=== PATIENT | female | born 1965 | race Hispanic/Latino ===

== ENCOUNTER → 2018-11-19 | Day surgery (SDC) | payer MEDICARE, MEDICAID ==
[~2018-11-19] MED LIST: Epoetin 40,000 UNITS/ML VIAL SC SCH
[2018-11-19 17:30] VITALS: BP 191/91; TEMP 97.9
== END ==
LOC: ONC/OP 14:42
PROVIDERS: ATTEND Internal Medicine Hematology & Oncology
DX: I12.9 Hypertensive chronic kidney disease with stage 1 through stage 4 chronic kidney disease, or unspecified chronic kidney disease (principal); D63.8 Anemia in other chronic diseases classified elsewhere; N18.9 Chronic kidney disease, unspecified
CPT/HCPCS: 36415; 80053; 82728; 83540; 83550; 96372; J0885

== ENCOUNTER 2018-12-02 09:09 | Inpatient (IN) | payer MEDICARE, MEDICAID ==
[2018-12-02 10:24] LABS: #Basophils 0.1 thou/uL (0.0-0.2); #Eosinphils 0.5 thou/uL (0.0-0.7); #Lymphocytes 1.8 thou/uL (1.20-3.40); #Monocytes 0.4 thou/uL (0.11-0.59); #Neutrophils 4.5 thou/uL (1.40-6.50); %Basophils 0.9 % (0.0-1.0); %Eosinophils 6.3 % (0.0-10.0); %Lymphocytes 25.2 % (21.0-51.0); %Monocytes 5.2 % (0.0-10.0); %Neutrophils 62.5 % (42.0-75.0); Hemoglobin 9.5 g/dL (12.0-16.0); Mean Corpuscular HGB CONC 36.4 g/dL (32.0-36.0); Mean Corpuscular Hemoglobin 30.1 pg (27.0-31.0); Mean Corpuscular Volume 82.6 fL (78.0-98.0); Mean Platelet Volume 7.1 fL (7.4-10.4); Platelet Count 271 thou/uL (130-400); Red Blood Cell (RBC) Count 3.16 mill/uL (4.20-5.40); White Blood Cell (WBC) Count 7.3 thou/uL (4.8-10.8)
[2018-12-02 10:39] LABS: Bilirubin Negative (Negative); Blood, Urine Trace (Negative); Clarity CLEAR (Clear); Glucose, Urine (Dipstick) 500 mg/dL (Negative); Leukocyte Negative (Negative); Nitrite Negative (Negative); Protein, Urine (Dipstick) 300 mg/dL (Neg-Trace); Specific Gravity, Urine 1.014 (1.002-1.036); Urobilinogen 0.2 mg/dL (0.2-1.0); pH, Urine 5.5 (5.0-9.0)
[2018-12-02 10:42] LABS: Bacteria/HPF None Seen HPF (None Seen); Hyaline Casts/LPF 7-10 HYALINE CAST LPF (0-3 Hyaline); Pathc Cast-AUWi Flag 1.45 (0-2.49); Squamous Epithelial 0-3 HPF (0-3)
[2018-12-02 10:44] LABS: ALT (SGPT) 10 U/L (8-55); AST (SGOT) 14 U/L (5-34); Albumin 3.3 g/dL (3.5-5.0); Alkaline Phosphatase 193 U/L (40-150); Anion Gap 13 mmol/L (10-20); BUN (Urea Nitrogen) 73 mg/dL (9.8-20.1); Bilirubin, Total 0.3 mg/dL (0.2-1.2); Calc. Creatinine Clearance 0 mL/min (70-130); Carbon Dioxide 19 mmol/L (22-29); Chloride 107 mmol/L (98-107); Estimated GFR-MDRD 10; Globulin 4.8 g/dL (2.4-3.5); Glucose 346 mg/dL (70-105); Protein, Total 8.1 g/dL (6.0-8.3); Sodium 134 mmol/L (136-145)
[2018-12-02] MEDS ORDERED: CEFAZOLIN/Water 2 GM/20 ML SYRINGE SLOW IVP SCH (11:45)
[2018-12-02 12:08] LABS: HBSAB Concentration 2.17 mIU/mL; Hep B Core Total Ab Non-Reactive (NonReactive); Hep B Core Total Index 0.06 S/CO (0-0.79); Hep B Surf AB Non-Reactive (NonReactive); Hep B Surf Ag Non-Reactive S/CO (NonReactive); Hep C IgG Ab Non-Reactive (NonReactive); Hep C Index 0.13 S/CO (0-0.79)
[2018-12-02] MEDS ORDERED: CEFAZOLIN 2 GM/50 ML-DEXTROSE 2 GM in Premix Bag 1 BAG IVPB SCH (12:30)
--- NOTE | 2018-12-02 13:34 | HP ---
PRIMARY CARE PHYSICIAN: Dr. East. PRIMARY LANDSCAPE PAINTER: Dr. Hunter. CHIEF COMPLAINT: Abnormal labs. HISTORY OF PRESENT ILLNESS: The patient is a 53-year-old female with chronic kidney disease, hypertension, and diabetes mellitus type 2, was sent from Dr. Hunter's office for abnormal labs. The patient was evaluated by Dr. Hunter yesterday and was found to have significant renal insufficiency. She was sent to the emergency room for initiation of dialysis. She had some nausea, however, denies any vomiting. She also had some generalized abdominal cramping, mainly in the upper quadrants. She denies any focal neurologic deficit, however, had some generalized headache. She denies significant shortness of breath, leg swelling, orthopnea, paroxysmal nocturnal dyspnea, or pleuritic chest pain. PAST MEDICAL HISTORY: 1. Worsening CKD. 2. Diabetes mellitus type 2, on insulin. 3. Diabetic neuropathy. 4. Hypertension. PAST SURGICAL HISTORY: 1. Bilateral cataract surgery. 2. Intervention for vitreous hemorrhage. 3. Cholecystectomy. 4. Tubal ligation. ALLERGIES: THE PATIENT DENIES ANY DRUG ALLERGIES. CURRENT HOME MEDICATIONS: 1. Novolin 70/30 of 40 units twice a day. 2. Lasix 40 mg b.i.d. 3. [id number] iron supplements daily. 4. Sodium bicarbonate 3 times a day. 5. Gabapentin 100 mg t.i.d. SOCIAL HISTORY: The patient currently lives at home with her family. She denies any smoking, alcohol, or drug use. FAMILY HISTORY: Positive for diabetes. REVIEW OF SYSTEMS: All other review of systems was reviewed and found negative. PHYSICAL EXAMINATION: VITAL SIGNS: Temperature 98.5, respirations 18, pulse of 84, blood pressure of 144/85, with O2 saturation 100% on room air. GENERAL: A 53-year-old female, in no significant distress. HEENT: Head is atraumatic, normocephalic. Sclerae are anicteric. Dry mucous membranes. No oral lesion. NECK: Supple. No JVD. No carotid bruit. LUNGS: Showed diminished air entry at bilateral bases. No significant rhonchi or rales noted. Lungs were symmetrical. HEART: S1 and S2 present. Regular rate and rhythm. No murmurs, rubs, or gallops appreciated. ABDOMEN: Soft, nontender. Bowel sounds present. EXTREMITIES: There is 1+ edema in bilateral lower extremities up to the knees. No calf tenderness noted. NEUROLOGIC: Grossly nonfocal. Moves all 4 extremities. PSYCHIATRIC: Alert, awake, and oriented x3. SKIN: Warm and dry. LYMPH NODE: No palpable lymph nodes in the neck. PERIPHERAL VASCULAR: Radial pulses palpable bilaterally. MUSCULOSKELETAL: No joint swelling or tenderness. LABORATORY FINDINGS: WBC 7.3 with hemoglobin 9.5, hematocrit 26.1, platelets 271. Recent BUN 104, creatinine 5.64. Bicarbonate today was 19, sodium of 134, blood sugar 346. Urinalysis showed 11 to 20 wbc's with proteinuria. No bacteria were seen. Hepatitis profile was negative. DIAGNOSTIC DATA: Chest x-ray, by my review, was negative for infiltrate. IMPRESSION: 1. Acute kidney injury on chronic kidney disease stage 5/end-stage renal disease. The patient will be initiated on hemodialysis per Nephrology. 2. Diabetic nephropathy/diabetes mellitus type 2/diabetic neuropathy. 3. Metabolic acidosis secondary to renal insufficiency. 4. Anemia secondary to renal disease. 5. Hypertension. PLAN: The patient will be monitored on the medical floor. Nephrology and General Surgery have already been consulted. We will start her on insulin sliding scale. We will start NPH 25 units b.i.d. We will continue hydralazine, Lasix, gabapentin, and sodium bicarbonate. We will recheck labs in a.m. We will consult dietitian for renal diet education. The patient will require 2 to 3 days as inpatient. Outpatient dialysis will be set up prior to discharge. Plan of care was discussed with the patient in detail. She stated understanding. Job ID: [id number] [facility]
[2018-12-02] MEDS ORDERED: Tuberculin PPD 0.1 ML VIAL I-DERMAL SCH (13:45)
--- NOTE | 2018-12-02 14:41 | ULT ---
ULTRASOUND VESSEL MAPPING FOR DIALYSIS ACCESS: Date: 12/02/18 HISTORY: ESRD. RIGHT UPPER EXTREMITY CEPHALIC VEIN Proximal Arm: 2.1 mm Mid Arm: 1.2 mm Distal Arm: 1.2 mm Antecubital Fossa: 1.3 mm Proximal Forearm: 0.5 mm Mid Forearm: 0.5 mm Distal Forearm: 0.7 mm BASILIC VEIN Proximal Arm: 3.6 mm Mid Arm: 4.5 mm Distal Arm: 3.6 mm Antecubital Fossa: 3.6 mm Proximal Forearm: 0.7 mm Mid Forearm: 0.5 mm Distal Forearm: 0.4 mm BRACHIAL ARTERY: 3.4 mm RADIAL ARTERY: 1.8 mm ULNAR ARTERY: 1.4 mm LEFT UPPER EXTREMITY CEPHALIC VEIN Proximal Arm: 1.7 mm Mid Arm: 1.2 mm Distal Arm: 1.5 mm Antecubital Fossa: 0.7 mm Proximal Forearm: 1.4 mm Mid Forearm: 1.5 mm Distal Forearm: 1.0 mm BASILIC VEIN Proximal Arm: 2.5 mm Mid Arm: 2.6 mm Distal Arm: 1.9 mm Antecubital Fossa: 1.9 mm Proximal Forearm: 0.9 mm Mid Forearm: 1.1 mm Distal Forearm: 0.8 mm BRACHIAL ARTERY: 3.1 mm RADIAL ARTERY: 1.7 mm ULNAR ARTERY: 1.3 mm POS: OFF
[2018-12-02] MEDS ORDERED: Ondansetron PF 4 MG/2 ML Vial IVP PRN (17:07)
[2018-12-02] MEDS ORDERED: Sodium Chloride 0.9% 1,000 ML IV SCH (17:07)
[2018-12-02] MEDS ORDERED: Acetaminophen 325 MG TAB PO PRN ×2 (17:07→21:38)
[2018-12-02] MEDS ORDERED: Ondansetron ODT 4 MG TAB SL PRN (17:07)
--- NOTE | 2018-12-02 17:58 | HP ---
HISTORY OF PRESENT ILLNESS: Anne Marie Berry is a 53-year-old female insulin-dependent diabetic, hypertensive, seen by Dr. Chang today. I have been asked to see her regarding placement of a hemodialysis catheter. She ate sausage and biscuit at 8:30 or 9:00 this morning. Hemoglobin 9.5, white count 7.3. Sodium 134, potassium 5, BUN 73, creatinine 4.167, GFR 10. She has had renal insufficiency since 2017 and now needs to initiate dialysis. She has antecubital IV which I immediately took out. ALLERGIES: NONE. SOCIAL HISTORY: Tobacco, none. Alcohol, none. MEDICATIONS: At home: 1. Januvia 25 mg a day. 2. Hydralazine 10 mg a day. 3. Amlodipine 10 mg a day. 4. Insulin 31 units subcu b.i.d. 5. Gabapentin 100 mg at bedtime. 6. Furosemide 40 mg a day. 7. Atorvastatin 80 mg a day. PAST SURGICAL HISTORY: Laparoscopic cholecystectomy, tubal ligation. PAST MEDICAL HISTORY: Diabetes mellitus, hypertension, obesity. REVIEW OF SYSTEMS: Noncontributory. PHYSICAL EXAMINATION: VITAL SIGNS: Blood pressure 146/84, respiratory rate 18, heart rate 80. Head, ears, eyes, nose and throat: Unremarkable. LUNGS: Clear to auscultation. CARDIAC: Regular rate and rhythm without murmur or gallop. ABDOMEN: Obese, soft, nontender, right antecubital IV removed. EXTREMITIES: Unremarkable. LABORATORIES: Noted above. ASSESSMENT AND PLAN: 1. Chronic kidney disease, end-stage renal disease, in need of dialysis access. We will plan placement of a Trialysis catheter at bedside today to initiate dialysis and tomorrow we will plan placement of a hemodialysis catheter, central line and left or right arm AV fistula pending vein mapping. She understands risks of infection, bleeding, reoperation, consents. 2. Diabetes mellitus. 3. Hypertension. 4. Obesity. 5. Metabolic syndrome. 6. Right antecubital IV removed immediately. Job ID: [id number]
[2018-12-02 19:55] VITALS: BMI 31.1
--- NOTE | 2018-12-02 21:14 | CON ---
DATE OF CONSULTATION: 12/02/2018 NEPHROLOGY CONSULT NOTE CONSULTING PHYSICIAN: Dr. Katz. REASON FOR CONSULTATION: Chronic kidney disease. REASON FOR ADMISSION: Abnormal labs. HISTORY OF PRESENT ILLNESS: A 53-year-old female with a history of type 2 diabetes and hypertension, came to the hospital not feeling well and abnormal labs. The patient was evaluated at the clinic. She was found to have worsening kidney function. The patient needs dialysis, so the patient was consulted for a while now about putting off dialysis, but renal function is getting worse. Complaints of mild nausea and upper abdominal cramps. No chest pain. No diarrhea reported. No skin rash. PAST MEDICAL HISTORY: Worsening CKD, type 2 diabetes, diabetic neuropathy, hypertension. PAST SURGICAL HISTORY: Cataract surgery, eye surgery, cholecystectomy, and tubal ligation. ALLERGIES: NO KNOWN DRUG ALLERGIES. HOME MEDICATIONS: 1. Novolin 70/30. 2. Lasix. 3. Sodium bicarbonate. 4. Iron supplements. 5. Gabapentin. SOCIAL HISTORY: No smoking, alcohol, or drug use. FAMILY HISTORY: Positive for diabetes. REVIEW OF SYSTEMS: CONSTITUTIONAL: Negative for weight loss or gain, ability to conduct usual activities. SKIN: Negative for rash, itching. EYES: Negative for double vision, pain. ENT/MOUTH: Negative for nose bleeding, neck stiffness, pain, tenderness. CARDIOVASCULAR: Negative for palpitations, dyspnea on exertion, orthopnea. RESPIRATORY: Negative for shortness of breath, wheezing, cough, hemoptysis, fever or night sweats. GASTROINTESTINAL: Negative for poor appetite, abdominal pain, heartburn, nausea, vomiting, constipation, or diarrhea. GENITOURINARY: Negative for urgency, frequency, dysuria, nocturia. MUSCULOSKELETAL: Negative for pain, swelling. NEUROLOGIC/PSYCHIATRIC: Negative for anxiety, depression. ALLERGY/IMMUNOLOGIC: Negative for skin rash, bleeding tendency. PHYSICAL EXAMINATION: GENERAL: This is a well-built female, in no apparent distress. VITAL SIGNS: Temperature 98.5, pulse 84, respiratory rate 18, blood pressure 144/85. HEENT: Atraumatic, normocephalic. Oral mucosa is moist. NECK: Supple. CVS: S1 and S2 heard. Rate and rhythm regular. RESPIRATORY: Clear. GASTROINTESTINAL: Abdomen is soft. MUSCULOSKELETAL: 1+ edema. DERMATOLOGIC: No skin rash. NEUROLOGICAL: Alert and awake. PSYCHIATRIC: Normal mood and affect. LABORATORY DATA: Hemoglobin is 9.5, potassium is 5.0, BUN is 73, creatinine is 4.6. ASSESSMENT AND PLAN: 1. End-stage renal disease. Plan is to start on dialysis. Surgeon consulted. We will have tunneled dialysis catheter and fistula placement. We will start dialysis. 2. Type 2 diabetes with diabetic nephropathy. 3. Metabolic acidosis. 4. Anemia. 5. Hypertension. 6. Edema. Plan is to start her on dialysis. Case management consulted for outpatient placement and Surgery consult for access placement. We will follow. Thank you for the consult. Job ID: [id number]
[2018-12-02] MEDS ORDERED: Dextrose 5% in Water 1,000 ML IV PRN (21:38)
[2018-12-02] MEDS ORDERED: Insulin Regular 300 UNITS/3 ML VIAL SC PRN (21:38)
[2018-12-02] MEDS ORDERED: Dextrose 50% Abboject 50 ML SYRINGE SLOW IVP PRN (21:38)
[2018-12-02] MEDS ORDERED: Polyethylene Glycol 3350 17 GM Packet PO PRN (21:42)
[2018-12-02] MEDS ORDERED: Senokot 8.6 MG TAB PO PRN (21:42)
[2018-12-02] MEDS ORDERED: Eucerin (Mineral Oil/Petrolatum,White) 30 gm Jar TOP PRN (21:42)
--- NOTE | 2018-12-02 22:33 | OP ---
DATE OF PROCEDURE: 12/02/2018 PREOPERATIVE DIAGNOSIS: End-stage renal disease secondary to diabetes and hypertensive nephropathy. POSTOPERATIVE DIAGNOSIS: End-stage renal disease secondary to diabetes and hypertensive nephropathy. PROCEDURE PERFORMED: Right femoral vein Trialysis catheter. ANESTHESIA: 1% xylocaine. PROCEDURE IN DETAIL: With the patient at bedside in the emergency room, the right groin was clipped of hair, prepared with ChloraPrep, draped in routine fashion. Local anesthetic was infiltrated in the skin and subcutaneous tissue about the operative site. Trocar catheter cannulated in the femoral vein. J-wire threaded. Trocar catheter was removed. The skin was incised and enlarged sharply. Small and medium sized dilators were placed over the J-wire into the femoral vein and removed. Trialysis distal port catheter was placed over the J-wire and removed the J-wire, securing the catheter with 2 interrupted sutures of 3-0 nylon and sterile dressings applied. Each port aspirated of blood and flushed with heparinized saline solution. Job ID: [id number]
[2018-12-03 05:43] LABS: #Basophils 0.1 thou/uL (0.0-0.2); #Eosinphils 0.3 thou/uL (0.0-0.7); #Lymphocytes 1.8 thou/uL (1.20-3.40); #Monocytes 0.4 thou/uL (0.11-0.59); #Neutrophils 3.5 thou/uL (1.40-6.50); %Basophils 1.2 % (0.0-1.0); %Eosinophils 4.8 % (0.0-10.0); %Lymphocytes 29.5 % (21.0-51.0); %Monocytes 6.7 % (0.0-10.0); %Neutrophils 57.9 % (42.0-75.0); Hemoglobin 8.2 g/dL (12.0-16.0); Mean Corpuscular HGB CONC 34.1 g/dL (32.0-36.0); Mean Corpuscular Hemoglobin 28.9 pg (27.0-31.0); Mean Corpuscular Volume 84.7 fL (78.0-98.0); Mean Platelet Volume 7.5 fL (7.4-10.4); Platelet Count 230 thou/uL (130-400); RBC Distribution Width 14.1 % (11.5-14.5); Red Blood Cell (RBC) Count 2.83 mill/uL (4.20-5.40); White Blood Cell (WBC) Count 6.1 thou/uL (4.8-10.8)
[2018-12-03 06:30] LABS: Anion Gap 14 mmol/L (10-20); BUN (Urea Nitrogen) 47 mg/dL (9.8-20.1); Calc. Creatinine Clearance 22 mL/min (70-130); Calcium 8.1 mg/dL (7.8-10.44); Carbon Dioxide 24 mmol/L (22-29); Chloride 105 mmol/L (98-107); Estimated GFR-MDRD 13; Glucose 330 mg/dL (70-105); Potassium 4.5 mmol/L (3.5-5.1); Sodium 138 mmol/L (136-145)
[2018-12-03] MEDS ORDERED: Bupivacaine HCl 0.5%/Epinephrine 1:200,000/PF 30 ml Vial ONE ×2 (06:39→07:00)
[2018-12-03] MEDS ORDERED: Sodium Chloride 0.9% 10 ML ONE (06:39)
[2018-12-03] MEDS ORDERED: Protamine Sulfate 250 MG/25 ML VIAL ONE (06:39)
[2018-12-03] MEDS ORDERED: Heparin 0 ML ONE (06:39)
[2018-12-03] MEDS ORDERED: Heparin 10,000 UNITS/1 ML VIAL ONE ×2 (06:39→07:03)
[2018-12-03] MEDS ORDERED: Lidocaine 2% 11 ML SYR ONE ×2 (06:39→07:00)
[2018-12-03] MEDS ORDERED: Insulin Regular 300 UNITS/3 ML VIAL ONE (06:42)
[2018-12-03] MEDS ORDERED: Fentanyl 100 MCG/2 ML VIAL ONE ×2 (06:57→09:58)
[2018-12-03] MEDS ORDERED: Ioversol 68 % 50 ML VIAL ONE ×2 (07:00→07:01)
[2018-12-03] MEDS ORDERED: Lidocaine 2% PF 5 ML VIAL ONE (07:02)
[2018-12-03] MEDS: NPH, Human Insulin Isophane 300 UNIT/3 ML VIAL SC SCH ×2 (08:00→18:00)
[2018-12-03] MEDS ORDERED: Ondansetron HCl/PF 4 MG/2 ML Vial IVP PRN (09:32)
[2018-12-03] MEDS ORDERED: Promethazine HCl 25 MG/ML VIAL IM PRN (09:32)
[2018-12-03] MEDS ORDERED: Promethazine HCl 25 MG/ML VIAL SLOW IVP PRN (09:32)
[2018-12-03] MEDS ORDERED: Promethazine HCl 25 MG/ML VIAL ONE (10:16)
[2018-12-03] MEDS ORDERED: Labetalol HCl 100 MG/20 ML VIAL SLOW IVP SCH (10:30)
--- NOTE | 2018-12-03 11:02 | RAD ---
SINGLE VIEW OF THE CHEST: Comparison: 05-17-13, 12-02-17 History: Central line placement. Cough. FINDINGS: Single view of the chest shows a normal sized cardiomediastinal silhouette. There is a right sided di alysis catheter with its tip in the superior vena cava. There is a left IJ central venous catheter wi th its tip in the superior vena cava. There is no evidence of consolidation, mass, or pleural effusio ns. No pneumothorax is seen. IMPRESSION: Status post central line placement without evidence of complication. POS: TPC
[2018-12-03] MEDS: Famotidine 20 MG TAB PO SCH (12:52)
[2018-12-03] MEDS: Insulin Regular 300 UNITS/3 ML VIAL SC PRN ×2 (12:56→18:05)
[2018-12-03] MEDS ORDERED: Lidocaine 1% PF 5 ML VIAL ONE (14:08)
[2018-12-03] MEDS ORDERED: PROPOFOL 200 MG/20 ML VIAL ONE (14:08)
[2018-12-03] MEDS ORDERED: PHENYLEPHRINE-NS 100 MCG/ML 10 ML SYRINGE ONE (14:08)
[2018-12-03] MEDS ORDERED: ePHEDrine/0.9% NaCl/PF SYRINGE 50 mg/10 ml ONE (14:08)
[2018-12-03] MEDS ORDERED: Ondansetron PF 4 MG/2 ML Vial ONE (14:08)
--- NOTE | 2018-12-03 15:10 | OP ---
DATE OF PROCEDURE: 12/03/2018 PREOPERATIVE DIAGNOSES: End-stage renal disease, poor veins by ultrasound vein mapping, possible adequate right basilic vein in right handed patient. Trialysis catheter, right groin. Previous AC IV placed on admission ER, moved immediately when I saw her. POSTOPERATIVE DIAGNOSES: End-stage renal disease, poor veins by ultrasound vein mapping, possible adequate right basilic vein in right handed patient. Trialysis catheter, right groin. Previous AC IV placed on admission ER, moved immediately when I saw her. PROCEDURE PERFORMED: Right IJ cuffed tunneled hemodialysis catheter, left IJ central line, ultrasound fluoroscopy use. Right arm primary fistula, perforating branch antecubital vein inflow proximal radial artery which was small but without arteriosclerotic disease outflow primary basilic vein, cephalic vein seemed to be occluded, retrograde antecubital vein preserved, although very small, good Doppler signal in the basilic vein outflow, calibration 2 to 3.5 mm dilator, basilic vein outflow without restriction. ANESTHESIA: General, local 0.5% Marcaine with epinephrine 30 mL mixed with 2% Xylocaine 10 mL. DESCRIPTION OF PROCEDURE: The patient was taken to the operating room, where under general anesthesia, neck, chest, and right upper extremity were prepared with ChloraPrep and draped in routine fashion. Local anesthetic was infiltrated into the skin and subcutaneous tissue about the operative site. Ultrasound was used to cannulate both the right and left internal jugular veins with trocar and catheters, threading J-wire, removing trocar and catheters, enlarging skin site sharply. Left side central line was placed with a Seldinger technique, removing the J-wire, securing the catheter with two interrupted sutures of 3-0 nylon and aspirated each port with blood flushed with saline solution. On the right side, the cuffed tunneled hemodialysis catheter tunneled between the two incisions through a stab incision over the right chest. Fabric cuff was placed beneath the skin. Catheter was secured with two interrupted sutures of 3-0 nylon. Sterile dressings and Biopatch applied. Small and medium sized dilators were placed over the J-wire into the internal jugular vein and removed. Dilator and Peel-Away sheath were placed with J-wire in superior vena cava, and J-wire and dilator were removed. Catheter was placed through the Peel-Away sheath. Peel-Away sheath was removed. Platysma was approximated with 4-0 Monocryl, skin with subdermal 4-0 Monocryl. Dermal glue applied. Catheter position verified with fluoroscopy. Each port aspirated blood, flushed with saline solution, then heparinized saline solution 1000 units/mL of heparin per milliliter indicating the volume of the port. Attention was turned to the right arm, where proximal volar skin incision was made longitudinally below the antecubital fossa, carried down to skin and subcutaneous tissue. The cephalic vein outflow was small. Retrograde antecubital vein was small, but there was a larger basilic vein. The perforating branch antecubital vein dissected free, dividing branches between 4-0 silk ties and clips, spatulating over branch point. The patient was given 6000 units of heparin intravenously. After adequate circulation time, basilic vein outflow was calibrated to 3.5 mm coronary dilator without obstruction or restriction. Brachial, radial, ulnar arteries dissected free and controlled with vascular clamps. Longitudinal arteriotomy was made in the proximal radial artery which was small, carried out towards the bifurcation. Vein appropriately spatulated and configured and end vein to side proximal radial artery anastomosis was created, completed with continuous suture of 6-0 Prolene, releasing vascular inflow noting good Doppler signal in the basilic vein outflow. Good hemostasis was noted and protamine 25 mg intravenously provided by Anesthesia. Subcutaneous tissue was approximated with 3-0 Monocryl, skin with subdermal 4-0 Monocryl, and Dermal glue applied. The patient tolerated the procedure well. Job ID: [id number]
[2018-12-03] MEDS: traMADol HCl 50 MG TAB PO PRN (16:00)
--- NOTE | 2018-12-03 19:06 | PRG ---
DATE OF SERVICE: 12/03/2018 SUBJECTIVE: Patient was seen and examined at bedside and overnight events noted. Patient denies any shortness of breath or chest pain or palpitation. No history of nausea or vomiting or diarrhea or fever or chills or cramps. OBJECTIVE: GENERAL: This is a well-built female, in no apparent distress. VITAL SIGNS: Temperature 97.8. Pulse 87. Respiratory rate 18. Blood pressure 121/85. HEENT: Atraumatic, normocephalic. Oral mucosa is moist. NECK: Supple. CARDIOVASCULAR: S1, S2 heard. Rate and rhythm regular. RESPIRATORY: Clear to auscultation. GASTROINTESTINAL: Abdomen is soft. MUSCULOSKELETAL: No tenderness. No edema. DERMATOLOGIC: No skin rash. NEUROLOGIC: Alert and awake and oriented X3. No focal neurologic deficits. Moving all the extremities. PSYCHIATRIC: Mood and affect normal. LABORATORY DATA: Potassium is 4.5, BUN is 47, and creatinine is 3.5. ASSESSMENT AND PLAN: 1. End-stage renal disease. Continue dialysis as tolerated. Appreciate help from Surgery for access placement. 2. Diabetic nephropathy. 3. Metabolic acidosis. 4. Anemia of chronic kidney disease. 5. Hypertension. 6. Edema. Continue dialysis as tolerated. Follow with case management for outpatient placement. Job ID: [id number]
[2018-12-03] MEDS: Acetaminophen 500 MG TAB PO PRN (21:20)
--- NOTE | 2018-12-03 22:59 | PDOC.PN ---
- Subjective Encounter Start Date: 12/03/18 Encounter Start Time: 15:00 Patient seen and examined for GERALDINE. No N/V/Diarrhea. No new complaints. No overnight events - Objective Resuscitation Status - Order Detail: 12/02/18 21:38 Resuscitation Status Routine Resuscitation Status: FULL: Full Resuscitation MAR Reviewed: Yes Vital Signs & Weight: Vital Signs (12 hours) Temp Pulse Resp BP Pulse Ox 12/03/18 21:26 100 12/03/18 16:00 97.8 F 87 18 121/85 100 12/03/18 13:03 97.4 F L 91 16 115/74 98 12/03/18 11:35 86 12/03/18 11:00 97 Weight Weight 165 lb 3 oz I&O: 12/02/18 12/03/18 12/04/18 06:59 06:59 06:59 Intake Total 350 800 Balance 350 800 Result Diagrams: 12/03/18 05:12 12/03/18 05:12 Additional Labs: Accuchecks 12/03/18 12/03/18 12/03/18 20:00 16:10 10:54 POC Glucose 250 H 196 H 204 H 12/03/18 12/03/18 09:52 04:52 POC Glucose 179 H 327 H Phys Exam - Physical Examination Constitutional: NAD Respiratory: no wheezing, no rhonchi Cardiovascular: RRR, no rub Gastrointestinal: soft, non-tender, positive bowel sounds Musculoskeletal: no edema Neurological: moves all 4 limbs Dx/Plan - Plan DVT proph w/SCDs 1. Acute kidney injury on chronic kidney disease stage 5/ESRD. 2. Diabetic nephropathy/diabetes mellitus type 2/diabetic neuropathy. 3. Metabolic acidosis secondary to renal insufficiency. 4. Anemia secondary to renal disease. 5. Hypertension. PLAN: s/p tunned dialysis catheter and fistula AM labs Cont sliding scale and current meds as below Await outpt dialysis setup Change Insulin to NPH 15 units BID- Review of Systems - Review of Systems Respiratory: negative: Cough, Dry, Shortness of Breath, Hemoptysis, SOB with Excertion, Pleuritic Pain, Sputum, Wheezing Cardiovascular: negative: chest pain, palpitations, orthopnea, paroxysmal nocturnal dyspnea, edema, light headedness, other - Medications/Allergies Allergies/Adverse Reactions: Allergies Allergy/AdvReac Type Severity Reaction Status Date / Time No Known Allergies Allergy Verified 12/02/18 16:58 Medications: Current Medications Acetaminophen (Tylenol) 1,000 mg PO Q6H PRN PRN Reason: Moderate to Severe Pain (6-10) Last Admin: 12/03/18 21:20 Dose: 1,000 mg Dextrose/Water (Dextrose 50%) 25 gm SLOW IVP PRN PRN PRN Reason: Hypoglycemia Famotidine (Pepcid) 20 mg PO QAM [facility] Last Admin: 12/03/18 12:52 Dose: 20 mg Glucagon (Glucagon) 1 mg IM PRN PRN PRN Reason: Hypoglycemia Hydralazine HCl (Apresoline) 10 mg SLOW IVP Q4H PRN PRN Reason: SBP Greater Than 180 Dextrose/Water (D5w) 1,000 mls @ 0 mls/hr IV .Q0M PRN PRN Reason: Hypoglycemia Insulin Human NPH (Humulin N) 15 unit SC BID-[facility] Last Admin: 12/03/18 18:00 Dose: 15 unit Insulin Human Regular (Humulin R) 0 units SC .MODERATE SLIDING SC PRN PRN Reason: Moderate Correctional Scale Last Admin: 12/03/18 18:05 Dose: 2 unit Insulin Human Regular (Humulin R) 0 units SC .BEDTIME SLIDING SC PRN PRN Reason: Bedtime Correctional Scale Mineral Oil/White Petrolatum (Eucerin Cream) 0 gm TOP BIDPRN PRN PRN Reason: Dry Skin Ondansetron HCl (Zofran Odt) 4 mg PO Q6H PRN PRN Reason: Nausea/Vomiting Ondansetron HCl (Zofran) 4 mg IVP Q6H PRN PRN Reason: Nausea/Vomiting Polyethylene Glycol (Miralax) 17 gm PO DAILYPRN PRN PRN Reason: Constipation Senna (Senokot) 2 tab PO HSPRN PRN PRN Reason: Constipation Sodium Chloride (Flush - Normal Saline) 10 ml IVF PRN PRN PRN Reason: Saline Flush Tramadol HCl (Ultram) 50 mg PO Q6H PRN PRN Reason: Pain Last Admin: 12/03/18 16:00 Dose: 50 mg Tramadol HCl (Ultram) 100 mg PO Q6H PRN PRN Reason: Pain Tuberculin PPD (Aplisol) 0.1 ml I-DERMAL ONE [facility] Stop: 12/05/18 13:46 Last Admin: 12/02/18 23:57 Dose: 0.1 ml
[2018-12-04] MEDS: traMADol HCl 50 MG TAB PO PRN (06:13)
[2018-12-04 06:40] LABS: Anion Gap 16 mmol/L (10-20); BUN (Urea Nitrogen) 53 mg/dL (9.8-20.1); Calc. Creatinine Clearance 17 mL/min (70-130); Carbon Dioxide 20 mmol/L (22-29); Chloride 107 mmol/L (98-107); Estimated GFR-MDRD 10; Glucose 148 mg/dL (70-105); Potassium 4.8 mmol/L (3.5-5.1); Sodium 138 mmol/L (136-145)
[2018-12-04] MEDS: NPH, Human Insulin Isophane 300 UNIT/3 ML VIAL SC SCH ×2 (08:50→17:38)
[2018-12-04] MEDS: Famotidine 20 MG TAB PO SCH (08:50)
[2018-12-04] MEDS: Acetaminophen 500 MG TAB PO PRN ×2 (08:57→20:38)
[2018-12-04] MEDS ORDERED: Heparin 1,000 UNITS/ML VIAL ONE (11:11)
[2018-12-04] MEDS: Ondansetron PF 4 MG/2 ML Vial IVP PRN ×2 (13:54→20:43)
[2018-12-04] MEDS ORDERED: Albumin 25% 25 GM/100 ML BOT IVPB SCH (14:24)
[2018-12-04] MEDS ORDERED: Sodium Chloride 0.9% 500 ML IV SCH (14:30)
--- NOTE | 2018-12-04 16:21 | PRG ---
DATE OF SERVICE: 12/04/2018 SUBJECTIVE: Patient was seen and examined at bedside and overnight events noted. Patient denies any shortness of breath or chest pain or palpitation. No history of nausea or vomiting or diarrhea or fever or chills or cramps. OBJECTIVE: GENERAL: This is a well-built female, in no apparent distress. VITAL SIGNS: Temperature 97.8, heart rate 90, respiratory rate 16, blood pressure 119/74. HEENT: Atraumatic, normocephalic. Oral mucosa is moist NECK: Supple. CARDIOVASCULAR: S1, S2 heard. Rate and rhythm regular. RESPIRATORY: Clear to auscultation. GASTROINTESTINAL: Abdomen is soft. MUSCULOSKELETAL: No tenderness. No edema. DERMATOLOGIC: No skin rash. NEUROLOGIC: Alert and awake and oriented X3. No focal neurologic deficits. Moving all the extremities. PSYCHIATRIC: Mood and affect normal. LABORATORY DATA: Potassium is 4.8, BUN is 53, creatinine is 4.7. ASSESSMENT AND PLAN: 1. End-stage renal disease. Continue dialysis as tolerated. 2. Diabetic nephropathy. 3. Anemia. 4. Hypertension. 5. Edema. We will continue on dialysis as tolerated. Continue dialysis on Friday, Friday, and Friday. Follow up with Case Management for outpatient placement. Job ID: [id number]
[2018-12-04] MEDS: Sodium Chloride 0.9% 1,000 ML IV SCH (17:42)
--- NOTE | 2018-12-04 23:00 | PDOC.PN ---
- Subjective Encounter Start Date: 12/04/18 Encounter Start Time: 15:00 Patient seen and examined for GERALDINE/ESRD. Nauseas after dialysis. No new complaints. No overnight events - Objective Resuscitation Status - Order Detail: 12/02/18 21:38 Resuscitation Status Routine Resuscitation Status: FULL: Full Resuscitation MAR Reviewed: Yes Vital Signs & Weight: Vital Signs (12 hours) Temp Pulse Resp BP BP Pulse Ox 12/04/18 20:00 97.9 F 93 20 161/81 H 96 12/04/18 16:00 97.7 F 92 18 151/82 H 95 12/04/18 13:55 97.6 F 90 16 167/89 H 97 Weight Weight 165 lb 3 oz I&O: 12/03/18 12/04/18 12/05/18 06:59 06:59 06:59 Intake Total 350 1250 2000 Output Total 1200 Balance 350 1250 800 Result Diagrams: 12/05/18 06:36 12/05/18 06:36 Additional Labs: Accuchecks 12/04/18 12/04/18 12/04/18 20:25 13:53 05:47 POC Glucose 155 H 190 H 145 H 12/04/18 12/03/18 02:26 06:40 POC Glucose 146 H 285 H Phys Exam - Physical Examination Pt in distress due to nausea Respiratory: no wheezing, no rhonchi Cardiovascular: RRR, no rub Gastrointestinal: soft, non-tender, positive bowel sounds Musculoskeletal: no edema Neurological: moves all 4 limbs Dx/Plan - Plan DVT proph w/SCDs 1. Acute kidney injury on chronic kidney disease stage 5/ESRD. s/p tunned dialysis catheter and fistula 2. Diabetic nephropathy/diabetes mellitus type 2/diabetic neuropathy. 3. Dialysis disequilibrium syndrome. 4. Anemia secondary to renal disease. 5. Hypertension. 6. Metabolic acidosis secondary to renal insufficiency. PLAN: Cont current meds as below Await outpt dialysis setup Cont NPH with sliding scale Started on IV fluids per Nephrology due to persistent nausea AM labs Review of Systems - Review of Systems Respiratory: negative: Cough, Dry, Shortness of Breath, Hemoptysis, SOB with Excertion, Pleuritic Pain, Sputum, Wheezing Cardiovascular: negative: chest pain, palpitations, orthopnea, paroxysmal nocturnal dyspnea, edema, light headedness, other Gastrointestinal: negative: Nausea, Vomiting, Abdominal Pain, Diarrhea, Constipation, Melena, Hematochezia, Other - Medications/Allergies Allergies/Adverse Reactions: Allergies Allergy/AdvReac Type Severity Reaction Status Date / Time No Known Allergies Allergy Verified 12/02/18 16:58 Medications: Current Medications Acetaminophen (Tylenol) 1,000 mg PO Q6H PRN PRN Reason: Moderate to Severe Pain (6-10) Last Admin: 12/04/18 20:38 Dose: 1,000 mg Dextrose/Water (Dextrose 50%) 25 gm SLOW IVP PRN PRN PRN Reason: Hypoglycemia Famotidine (Pepcid) 20 mg PO QAM [facility] Last Admin: 12/04/18 08:50 Dose: 20 mg Glucagon (Glucagon) 1 mg IM PRN PRN PRN Reason: Hypoglycemia Hydralazine HCl (Apresoline) 10 mg SLOW IVP Q4H PRN PRN Reason: SBP Greater Than 180 Dextrose/Water (D5w) 1,000 mls @ 0 mls/hr IV .Q0M PRN PRN Reason: Hypoglycemia Sodium Chloride (Normal Saline 0.9%) 1,000 mls @ 100 mls/hr IV .Q10H [facility] Last Admin: 12/04/18 17:42 Dose: Not Given Insulin Human NPH (Humulin N) 15 unit SC BID-[facility] Last Admin: 12/04/18 17:38 Dose: 15 unit Insulin Human Regular (Humulin R) 0 units SC .MODERATE SLIDING SC PRN PRN Reason: Moderate Correctional Scale Last Admin: 12/03/18 18:05 Dose: 2 unit Insulin Human Regular (Humulin R) 0 units SC .BEDTIME SLIDING SC PRN PRN Reason: Bedtime Correctional Scale Mineral Oil/White Petrolatum (Eucerin Cream) 0 gm TOP BIDPRN PRN PRN Reason: Dry Skin Ondansetron HCl (Zofran Odt) 4 mg PO Q6H PRN PRN Reason: Nausea/Vomiting Ondansetron HCl (Zofran) 4 mg IVP Q6H PRN PRN Reason: Nausea/Vomiting Last Admin: 12/04/18 20:43 Dose: 4 mg Polyethylene Glycol (Miralax) 17 gm PO DAILYPRN PRN PRN Reason: Constipation Senna (Senokot) 2 tab PO HSPRN PRN PRN Reason: Constipation Sodium Chloride (Flush - Normal Saline) 10 ml IVF PRN PRN PRN Reason: Saline Flush Tramadol HCl (Ultram) 50 mg PO Q6H PRN PRN Reason: Pain Last Admin: 12/03/18 16:00 Dose: 50 mg Tramadol HCl (Ultram) 100 mg PO Q6H PRN PRN Reason: Pain Last Admin: 12/04/18 06:13 Dose: 100 mg Tuberculin PPD (Aplisol) 0.1 ml I-[facility] Stop: 12/05/18 13:46 Last Admin: 12/02/18 23:57 Dose: 0.1 ml
[2018-12-05] MEDS: Ondansetron PF 4 MG/2 ML Vial IVP PRN ×2 (05:33→23:39)
[2018-12-05] MEDS: Sodium Chloride 0.9% 1,000 ML IV SCH ×3 (05:39→23:39)
[2018-12-05 07:02] LABS: Anion Gap 13 mmol/L (10-20); BUN (Urea Nitrogen) 28 mg/dL (9.8-20.1); Calc. Creatinine Clearance 24 mL/min (70-130); Calcium 8.3 mg/dL (7.8-10.44); Carbon Dioxide 25 mmol/L (22-29); Chloride 106 mmol/L (98-107); Estimated GFR-MDRD 15; Glucose 119 mg/dL (70-105); Magnesium 1.8 mg/dL (1.6-2.6); Sodium 139 mmol/L (136-145)
[2018-12-05 07:10] LABS: Hemoglobin 7.1 g/dL (12.0-16.0); Platelet Count 198 thou/uL (130-400)
[2018-12-05] MEDS: NPH, Human Insulin Isophane 300 UNIT/3 ML VIAL SC SCH ×2 (08:44→17:37)
[2018-12-05] MEDS: Famotidine 20 MG TAB PO SCH (09:55)
--- NOTE | 2018-12-05 14:15 | PDOC.PN ---
- Subjective Encounter Start Date: 12/05/18 Encounter Start Time: 11:00 Patient seen and examined for GERALDINE. Nausea improving. Feels somewhat better. No new complaints. No overnight events - Objective Resuscitation Status - Order Detail: 12/02/18 21:38 Resuscitation Status Routine Resuscitation Status: FULL: Full Resuscitation MAR Reviewed: Yes Vital Signs & Weight: Vital Signs (12 hours) Temp Pulse Resp BP Pulse Ox 12/05/18 07:31 98.0 F 89 16 151/75 H 93 L 12/05/18 04:00 98.8 F 88 20 146/80 H 93 L Weight Weight 165 lb 3 oz I&O: 12/04/18 12/05/18 12/06/18 06:59 06:59 06:59 Intake Total 1250 3700 240 Output Total 1200 Balance 1250 2500 240 Result Diagrams: 12/05/18 06:36 12/05/18 06:36 Additional Labs: Accuchecks 12/05/18 12/05/18 12/05/18 11:16 05:19 00:11 POC Glucose 139 H 116 H 160 H 12/04/18 12/04/18 20:25 16:01 POC Glucose 155 H 171 H Phys Exam - Physical Examination Constitutional: NAD Respiratory: no wheezing, no rhonchi Cardiovascular: RRR, no rub Gastrointestinal: soft, non-tender, positive bowel sounds Musculoskeletal: no edema Neurological: moves all 4 limbs Dx/Plan - Plan DVT proph w/SCDs 1. Acute kidney injury on chronic kidney disease stage 5/ESRD. s/p tunned dialysis catheter and fistula 2. Diabetic nephropathy/diabetes mellitus type 2/diabetic neuropathy. 3. Dialysis disequilibrium syndrome. 4. Anemia secondary to renal disease. 5. Hypertension. 6. Metabolic acidosis secondary to renal insufficiency. PLAN: Cont NPH with sliding scale On IV fluids per Nephrology due to persistent nausea AM labs Cont current meds as below Await outpt dialysis setup Review of Systems - Review of Systems Respiratory: negative: Cough, Dry, Shortness of Breath, Hemoptysis, SOB with Excertion, Pleuritic Pain, Sputum, Wheezing Cardiovascular: negative: chest pain, palpitations, orthopnea, paroxysmal nocturnal dyspnea, edema, light headedness, other - Medications/Allergies Allergies/Adverse Reactions: Allergies Allergy/AdvReac Type Severity Reaction Status Date / Time No Known Allergies Allergy Verified 12/02/18 16:58 Medications: Current Medications Acetaminophen (Tylenol) 1,000 mg PO Q6H PRN PRN Reason: Moderate to Severe Pain (6-10) Last Admin: 12/04/18 20:38 Dose: 1,000 mg Dextrose/Water (Dextrose 50%) 25 gm SLOW IVP PRN PRN PRN Reason: Hypoglycemia Famotidine (Pepcid) 20 mg PO QAM [facility] Last Admin: 12/05/18 09:55 Dose: 20 mg Glucagon (Glucagon) 1 mg IM PRN PRN PRN Reason: Hypoglycemia Hydralazine HCl (Apresoline) 10 mg SLOW IVP Q4H PRN PRN Reason: SBP Greater Than 180 Dextrose/Water (D5w) 1,000 mls @ 0 mls/hr IV .Q0M PRN PRN Reason: Hypoglycemia Sodium Chloride (Normal Saline 0.9%) 1,000 mls @ 100 mls/hr IV .Q10H [facility] Last Admin: 12/05/18 08:49 Dose: 1,000 mls Insulin Human NPH (Humulin N) 15 unit SC BID-[facility] Last Admin: 12/05/18 08:44 Dose: 15 unit Insulin Human Regular (Humulin R) 0 units SC .MODERATE SLIDING SC PRN PRN Reason: Moderate Correctional Scale Last Admin: 12/03/18 18:05 Dose: 2 unit Insulin Human Regular (Humulin R) 0 units SC .BEDTIME SLIDING SC PRN PRN Reason: Bedtime Correctional Scale Mineral Oil/White Petrolatum (Eucerin Cream) 0 gm TOP BIDPRN PRN PRN Reason: Dry Skin Ondansetron HCl (Zofran Odt) 4 mg PO Q6H PRN PRN Reason: Nausea/Vomiting Ondansetron HCl (Zofran) 4 mg IVP Q6H PRN PRN Reason: Nausea/Vomiting Last Admin: 12/05/18 05:33 Dose: 4 mg Polyethylene Glycol (Miralax) 17 gm PO DAILYPRN PRN PRN Reason: Constipation Senna (Senokot) 2 tab PO HSPRN PRN PRN Reason: Constipation Sodium Chloride (Flush - Normal Saline) 10 ml IVF PRN PRN PRN Reason: Saline Flush Tramadol HCl (Ultram) 50 mg PO Q6H PRN PRN Reason: Pain Last Admin: 12/03/18 16:00 Dose: 50 mg Tramadol HCl (Ultram) 100 mg PO Q6H PRN PRN Reason: Pain Last Admin: 12/04/18 06:13 Dose: 100 mg
[2018-12-05] MEDS: traMADol HCl 50 MG TAB PO PRN (15:37)
[2018-12-05] MEDS: Acetaminophen 500 MG TAB PO PRN (20:02)
--- NOTE | 2018-12-05 20:39 | PRG ---
DATE OF SERVICE: 12/05/2018 SUBJECTIVE: Patient was seen and examined at bedside and overnight events noted. Patient denies any shortness of breath or chest pain or palpitation. No history of nausea or vomiting or diarrhea or fever or chills or cramps. OBJECTIVE: GENERAL: This is a well-built female, in no apparent distress. VITAL SIGNS: Temperature 98.0. Pulse 89. Respiratory rate 16. Blood pressure 151/75. HEENT: Atraumatic, normocephalic. Oral mucosa is moist NECK: Supple. CARDIOVASCULAR: S1, S2 heard. Rate and rhythm regular. RESPIRATORY: Clear to auscultation. GASTROINTESTINAL: Abdomen is soft. MUSCULOSKELETAL: No tenderness. No edema. DERMATOLOGIC: No skin rash. NEUROLOGIC: Alert and awake and oriented X3. No focal neurologic deficits. Moving all the extremities. PSYCHIATRIC: Mood and affect normal. LABORATORY DATA: Potassium is 5.0, BUN is 28, creatinine is 3.2. ASSESSMENT AND PLAN: 1. End-stage renal disease. Continue dialysis as tolerated. Follow with Case Management for outpatient placement for . 2. Diabetic nephropathy. 3. Anemia. Monitor hemoglobin. Continue Epogen. 4. Hypertension, stable. 5. Edema. dialysis. Continue dialysis as tolerated. Job ID: [id number]
[2018-12-06] MEDS: traMADol HCl 50 MG TAB PO PRN ×3 (00:13→23:30)
[2018-12-06 06:38] LABS: #Eosinphils 0.5 thou/uL (0.0-0.7); #Lymphocytes 2.3 thou/uL (1.20-3.40); #Monocytes 0.5 thou/uL (0.11-0.59); #Neutrophils 3.6 thou/uL (1.40-6.50); %Basophils 0.7 % (0.0-1.0); %Eosinophils 6.9 % (0.0-10.0); %Lymphocytes 33.8 % (21.0-51.0); %Monocytes 6.7 % (0.0-10.0); %Neutrophils 51.9 % (42.0-75.0); Hemoglobin 7.1 g/dL (12.0-16.0); Mean Corpuscular Hemoglobin 29.3 pg (27.0-31.0); Mean Corpuscular Volume 86.2 fL (78.0-98.0); Platelet Count 194 thou/uL (130-400); RBC Distribution Width 13.4 % (11.5-14.5); Red Blood Cell (RBC) Count 2.42 mill/uL (4.20-5.40); White Blood Cell (WBC) Count 6.9 thou/uL (4.8-10.8)
[2018-12-06 07:01] LABS: Anion Gap 13 mmol/L (10-20); BUN (Urea Nitrogen) 41 mg/dL (9.8-20.1); Calc. Creatinine Clearance 20 mL/min (70-130); Calcium 8.2 mg/dL (7.8-10.44); Carbon Dioxide 21 mmol/L (22-29); Chloride 109 mmol/L (98-107); Estimated GFR-MDRD 12; Glucose 74 mg/dL (70-105); Potassium 4.7 mmol/L (3.5-5.1); Sodium 138 mmol/L (136-145)
[2018-12-06] MEDS: Famotidine 20 MG TAB PO SCH (08:21)
[2018-12-06] MEDS: NPH, Human Insulin Isophane 300 UNIT/3 ML VIAL SC SCH ×2 (08:21→17:19)
[2018-12-06] MEDS: Ondansetron PF 4 MG/2 ML Vial IVP PRN (08:21)
[2018-12-06] MEDS: Sodium Chloride 0.9% 1,000 ML IV SCH ×2 (10:01→21:02)
[2018-12-06] MEDS: Acetaminophen 500 MG TAB PO PRN (13:45)
--- NOTE | 2018-12-06 16:24 | PDOC.PN ---
- Subjective Encounter Start Date: 12/06/18 Encounter Start Time: 16:20 Subjective: f/u for ESRD on HD last session on 12/04/18. Some dizziness when up -: and walking. Tolerating po intake. - Objective Resuscitation Status - Order Detail: 12/02/18 21:38 Resuscitation Status Routine Resuscitation Status: FULL: Full Resuscitation MAR Reviewed: Yes Vital Signs & Weight: Vital Signs (12 hours) Temp Pulse Resp BP Pulse Ox 12/06/18 08:00 97 12/06/18 07:50 97.8 F 82 18 181/87 H 97 Weight Weight 165 lb 3 oz I&O: 12/05/18 12/06/18 12/07/18 06:59 06:59 06:59 Intake Total 3700 1680 120 Output Total 1200 Balance 2500 1680 120 Result Diagrams: 12/06/18 06:15 12/06/18 06:15 Additional Labs: Accuchecks 12/06/18 12/06/18 12/05/18 11:26 06:27 20:03 POC Glucose 130 H 78 122 H 12/05/18 17:14 POC Glucose 102 Laboratory Tests 12/02/18 12/02/18 12/03/18 10:03 10:03 05:12 Hgb 9.5 L Creatinine 4.67 H 3.59 H 12/03/18 12/04/18 12/05/18 05:12 06:15 06:36 Hgb 8.2 L Creatinine 4.63 H 3.29 H 12/05/18 06:36 Hgb 7.1 L Creatinine Phys Exam - Physical Examination Constitutional: NAD HEENT: PERRLA, sclera anicteric, oral pharynx no lesions Neck: no nodes, no JVD, supple, full ROM Respiratory: no wheezing, no rales, no rhonchi, clear to auscultation bilateral S1, S2 Cardiovascular: RRR, no significant murmur, no rub, gallop Gastrointestinal: soft, non-tender, no distention, positive bowel sounds R IJ tunneled HD catheter in place Musculoskeletal: no edema, pulses present Neurological: normal sensation, moves all 4 limbs Psychiatric: A&O x 3 Skin: normal turgor, cap refill <2 seconds Dx/Plan (1) ESRD (end stage renal disease) on dialysis Code(s): N18.6 - END STAGE RENAL DISEASE; Z99.2 - DEPENDENCE ON RENAL DIALYSIS Status: Acute Comment: HD per Renal service, plan for next session 12/07/18 (2) Diabetic nephropathy associated with type 2 diabetes mellitus Code(s): E11.21 - TYPE 2 DIABETES MELLITUS WITH DIABETIC NEPHROPATHY Status: Chronic (3) Symptomatic anemia Code(s): D64.9 - ANEMIA, UNSPECIFIED Status: Acute (4) HTN (hypertension) Code(s): I10 - ESSENTIAL (PRIMARY) HYPERTENSION Status: Chronic Qualifiers: Hypertension type: essential hypertension Qualified Code(s): I10 - Essential (primary) hypertension Comment: Resume Hydralazine 50mg TID, titrate medical mgmt - Plan plan discussed w/ family, social science teacher, out of bed/ambulate, DVT proph w/SCDs Stable currently -: HD per Renal service -: Recommend PRBC's with next HD session -: Continue FeSO4, Epogen -: AM lab: BMP, CBC, stool hemoccult * .
--- NOTE | 2018-12-06 18:51 | PRG ---
DATE OF SERVICE: 12/06/2018 SUBJECTIVE: Patient was seen and examined at bedside and overnight events noted. Patient denies any shortness of breath or chest pain or palpitation. No history of nausea or vomiting or diarrhea or fever or chills or cramps. OBJECTIVE: GENERAL: This is a well-built female, in no apparent distress. VITAL SIGNS: Temperature 97.8. Pulse 82. Respiratory rate 18. Blood pressure 181/87. LABORATORY DATA: Potassium is 4.7, BUN is 41, and creatinine is 3.9. ASSESSMENT AND PLAN: 1. End-stage renal disease, was started on hemodialysis during this admission, tolerated it well. Plan is to continue hemodialysis on Friday, Friday and Friday. Follow with case management for outpatient placement. 2. Diabetic nephropathy. 3. Proteinuria. 4. Anemia. 5. Hypertension, stable. 6. Edema, controlled. Continue dialysis as tolerated. Job ID: [id number]
[2018-12-06] MEDS: hydrALAZINE 25 MG TAB PO SCH (21:02)
[2018-12-06] MEDS: Ondansetron ODT 4 MG TAB PO PRN (23:31)
[2018-12-07] MEDS: Sodium Chloride 0.9% 1,000 ML IV SCH ×3 (05:13→22:10)
[2018-12-07 05:45] LABS: Anion Gap 11 mmol/L (10-20); BUN (Urea Nitrogen) 43 mg/dL (9.8-20.1); Calc. Creatinine Clearance 21 mL/min (70-130); Calcium 8.4 mg/dL (7.8-10.44); Carbon Dioxide 19 mmol/L (22-29); Chloride 112 mmol/L (98-107); Estimated GFR-MDRD 13; Glucose 112 mg/dL (70-105); Sodium 137 mmol/L (136-145)
[2018-12-07 05:53] LABS: Eosinophils 1 % (0-10); Hemoglobin 6.8 g/dL (12.0-16.0); Hypochromia SLIGHT = 6-15 cells (100X) (0-5/hpf); Lymphocytes 18 % (21-51); MDiff Complete? YES; Mean Corpuscular HGB CONC 34.4 g/dL (32.0-36.0); Mean Corpuscular Hemoglobin 29.3 pg (27.0-31.0); Mean Corpuscular Volume 84.9 fL (78.0-98.0); Mean Platelet Volume 7.2 fL (7.4-10.4); Monocytes 3 % (0-10); Neutrophil 78 % (42-75); Platelet Count 213 thou/uL (130-400); Platelet Morphology Comment Appears Adequate; Polychromasia SLIGHT = 2-3 cells (100X) (0-2/hpf); RBC Distribution Width 13.1 % (11.5-14.5); Red Blood Cell (RBC) Count 2.33 mill/uL (4.20-5.40); White Blood Cell (WBC) Count 7.1 thou/uL (4.8-10.8)
[2018-12-07] MEDS: Ondansetron ODT 4 MG TAB PO PRN ×2 (06:01→23:34)
[2018-12-07] MEDS: traMADol HCl 50 MG TAB PO PRN ×3 (06:02→23:34)
[2018-12-07] MEDS ORDERED: Heparin 10,000 UNITS/ 10 ML VIAL ONE (10:00)
--- NOTE | 2018-12-07 10:44 | PRG ---
DATE OF SERVICE: SUBJECTIVE: A 53-year-old female being seen for end-stage renal disease. The patient denied any nausea, vomiting, or chest pain. OBJECTIVE: See above. Awake, alert, in no acute distress. GENERAL APPEARANCE AND MENTAL STATUS: Fair. VITAL SIGNS: Afebrile, pulse 92, breathing 16, blood pressure . HEAD/NECK: Normocephalic. Atraumatic. EYES: EOMI. No deformity. EARS: Clear. No ulcers. NOSE: Intact. No lesions. MOUTH: Clear. No discharge. THROAT: Clear. No exudate. LUNGS: Clear. No crackles. CARDIAC: S1, S2. No rub. ABDOMEN: Benign. Bowel sounds positive. GENITALIA/RECTUM: Haywood absent. BACK/EXTREMITIES: Edema 0+. NEUROLOGICAL: Alert and motor intact. SKIN: LYMPHATICS: LABORATORY DATA: Show hemoglobin 6.8. Potassium 5. ASSESSMENT AND PLAN: 1. Stage 6 chronic kidney disease, plan dialysis. 2. Anemia, plan transfusion. 3. Hypertension, stable. 4. Medications based on GFR appropriate. Job ID: [id number]
--- NOTE | 2018-12-07 10:51 | PRG ---
DATE OF SERVICE: Ms. Berry is doing well. She is undergoing dialysis currently. The patient has a good right arm bruit and thrill. She will need a basilic vein transposition fistula in the future. I would recommend that the patient exercise the right arm. Return to see me in the office in 3 to 4 weeks. At which time, we will evaluate her fistula and arrange outpatient right arm basilic vein transposition fistula. I will see her as needed this hospitalization. Please call if necessary. Job ID: [id number]
[2018-12-07] MEDS: Famotidine 20 MG TAB PO SCH (11:23)
[2018-12-07] MEDS: NPH, Human Insulin Isophane 300 UNIT/3 ML VIAL SC SCH ×2 (11:23→17:31)
[2018-12-07] MEDS: hydrALAZINE 25 MG TAB PO SCH ×3 (11:23→22:09)
[2018-12-07] MEDS: Ondansetron PF 4 MG/2 ML Vial IVP PRN (12:10)
[2018-12-07] MEDS: hydrALAZINE 20 MG/ML VIAL SLOW IVP PRN (12:50)
--- NOTE | 2018-12-07 14:23 | PDOC.PN ---
- Subjective Encounter Start Date: 12/07/18 Encounter Start Time: 14:10 Subjective: f/u for ESRD on HD and anemia. States feeling exhausted after HD today, -: received 2u PRBC's today. No N/V/D or CP. - Objective Resuscitation Status - Order Detail: 12/02/18 21:38 Resuscitation Status Routine Resuscitation Status: FULL: Full Resuscitation MAR Reviewed: Yes Vital Signs & Weight: Vital Signs (12 hours) Temp Pulse Pulse Resp BP BP BP 12/07/18 12:50 95 203/108 H 12/07/18 12:00 98.2 F 92 20 203/108 H 12/07/18 11:30 97.8 F 94 18 207/101 H 12/07/18 11:15 97.7 F 96 18 198/99 H 12/07/18 11:00 97.7 F 96 18 199/100 H 12/07/18 10:40 97.8 F 94 18 182/93 H 12/07/18 10:25 97.8 F 94 18 179/86 H 12/07/18 07:30 97.3 F L 92 18 176/80 H 12/07/18 04:00 156/82 H Pulse Ox 12/07/18 12:50 12/07/18 12:00 93 L 12/07/18 11:30 12/07/18 11:15 12/07/18 11:00 12/07/18 10:40 12/07/18 10:25 12/07/18 07:30 97 12/07/18 04:00 Weight Weight 165 lb 3 oz I&O: 12/06/18 12/07/18 12/08/18 06:59 06:59 06:59 Intake Total 1680 1800 700 Balance 1680 1800 700 Result Diagrams: 12/07/18 05:28 12/07/18 05:28 Additional Labs: Accuchecks 12/07/18 12/07/18 12/06/18 12:06 05:16 19:58 POC Glucose 104 117 H 153 H 12/06/18 12/04/18 16:40 09:30 POC Glucose 142 H 176 H Laboratory Tests 12/02/18 12/02/18 12/03/18 10:03 10:03 05:12 WBC Hgb 9.5 L Creatinine 4.67 H 3.59 H 12/03/18 12/04/18 12/05/18 05:12 06:15 06:36 WBC Hgb 8.2 L Creatinine 4.63 H 3.29 H 12/05/18 12/06/18 12/06/18 06:36 06:15 06:15 WBC 6.9 Hgb 7.1 L 7.1 L Creatinine 3.97 H Phys Exam - Physical Examination Constitutional: NAD HEENT: PERRLA, sclera anicteric, oral pharynx no lesions Neck: no nodes, no JVD, supple, full ROM Respiratory: no wheezing, no rales, no rhonchi, clear to auscultation bilateral S1, S2 Cardiovascular: RRR, no significant murmur, no rub, gallop Gastrointestinal: soft, non-tender, no distention, positive bowel sounds Musculoskeletal: no edema, pulses present Neurological: normal sensation, moves all 4 limbs Flat affect Psychiatric: A&O x 3 Skin: normal turgor, cap refill <2 seconds Dx/Plan (1) ESRD (end stage renal disease) on dialysis Code(s): N18.6 - END STAGE RENAL DISEASE; Z99.2 - DEPENDENCE ON RENAL DIALYSIS Status: Acute Comment: HD per Renal service, plan for next session 12/07/18 (2) Diabetic nephropathy associated with type 2 diabetes mellitus Code(s): E11.21 - TYPE 2 DIABETES MELLITUS WITH DIABETIC NEPHROPATHY Status: Chronic Comment: May be a candidate for transplant consideration (3) Symptomatic anemia Code(s): D64.9 - ANEMIA, UNSPECIFIED Status: Acute Comment: s/p 2u PRBC's with HD 12/07/18, serial H/H (4) HTN (hypertension) Code(s): I10 - ESSENTIAL (PRIMARY) HYPERTENSION Status: Chronic Qualifiers: Hypertension type: essential hypertension Qualified Code(s): I10 - Essential (primary) hypertension Comment: Labile, Resume Hydralazine 50mg TID, add Norvasc 5mg daily - Plan certified social workers in health care, out of bed/ambulate, DVT proph w/SCDs Stable currently -: Add Norvasc 5mg daily -: Continue Hydralazine 50mg TID -: HD per Renal service -: CM assisting with outpt HD coordination * AM lab: BMP, CBC
[2018-12-07] MEDS ORDERED: Amlodipine 5 MG TAB PO SCH (16:00)
[2018-12-07] MEDS ORDERED: Non-Formulary Item 1 EACH (Insulin Aspart Prot/Insuln Asp [Novolog Mix 70-30 Flexpen Syrn SQ SCH (17:00)
[2018-12-07] MEDS: Acetaminophen 500 MG TAB PO PRN (17:27)
[2018-12-07 19:53] VITALS: TEMP 98.2
[2018-12-08] MEDS: hydrALAZINE 20 MG/ML VIAL SLOW IVP PRN (05:02)
[2018-12-08] MEDS: Ondansetron PF 4 MG/2 ML Vial IVP PRN (05:10)
[2018-12-08 05:22] LABS: Band 2 % (5-11); Eosinophils 1 % (0-10); Hemoglobin 10.9 g/dL (12.0-16.0); Lymphocytes 16 % (21-51); MDiff Complete? YES; Mean Corpuscular HGB CONC 34.4 g/dL (32.0-36.0); Mean Corpuscular Hemoglobin 28.9 pg (27.0-31.0); Mean Corpuscular Volume 83.8 fL (78.0-98.0); Mean Platelet Volume 6.7 fL (7.4-10.4); Monocytes 6 % (0-10); Neutrophil 73 % (42-75); Platelet Count 234 thou/uL (130-400); Platelet Morphology Comment Appears Adequate; RBC Distribution Width 13.2 % (11.5-14.5); Red Blood Cell (RBC) Count 3.78 mill/uL (4.20-5.40); White Blood Cell (WBC) Count 8.6 thou/uL (4.8-10.8)
[2018-12-08 05:28] LABS: Anion Gap 11 mmol/L (10-20); BUN (Urea Nitrogen) 24 mg/dL (9.8-20.1); Calc. Creatinine Clearance 28 mL/min (70-130); Calcium 8.8 mg/dL (7.8-10.44); Carbon Dioxide 24 mmol/L (22-29); Chloride 104 mmol/L (98-107); Estimated GFR-MDRD 18; Glucose 119 mg/dL (70-105); Potassium 4.1 mmol/L (3.5-5.1); Sodium 135 mmol/L (136-145)
[2018-12-08 07:17] VITALS: BP 136/79
[2018-12-08] MEDS: hydrALAZINE 25 MG TAB PO SCH ×2 (08:47→16:11)
[2018-12-08] MEDS: Sodium Chloride 0.9% 1,000 ML IV SCH (08:51)
[2018-12-08] MEDS: NPH, Human Insulin Isophane 300 UNIT/3 ML VIAL SC SCH (08:51)
[2018-12-08] MEDS: Famotidine 20 MG TAB PO SCH (08:51)
[2018-12-08] MEDS ORDERED: Amlodipine 5 MG TAB PO SCH (09:00)
--- NOTE | 2018-12-08 12:46 | PRG ---
DATE OF SERVICE: 12/08/2018 SUBJECTIVE: A 53-year-old female being seen for end-stage renal disease. The patient denied any nausea, vomiting, or chest pain. OBJECTIVE: See above. Awake, alert, in no acute distress. GENERAL APPEARANCE AND MENTAL STATUS: Fair. VITAL SIGNS: Afebrile, pulse 100, breathing 16, blood pressure 136/79. HEAD/NECK: Normocephalic. Atraumatic. EYES: EOMI. No deformity. EARS: Clear. No ulcers. NOSE: Intact. No lesions. MOUTH: Clear. No discharge. THROAT: Clear. No exudate. LUNGS: Clear. No crackles. CARDIAC: S1, S2. No rub. ABDOMEN: Benign. Bowel sounds positive. GENITALIA/RECTUM: Haywood absent. BACK/EXTREMITIES: Edema 0+. NEUROLOGICAL: Alert and motor intact. SKIN: LYMPHATICS: LABORATORY DATA: Show hemoglobin 10.9. ASSESSMENT AND PLAN: 1. Stage 6 chronic kidney disease, stable. 2. Hypertension, stable. 3. Anemia, stable. 4. Outpatient discharge planning is in progress. Job ID: [id number]
[2018-12-08] MEDS: traMADol HCl 50 MG TAB PO PRN (16:11)
--- NOTE | 2018-12-09 06:12 | DIS ---
DATE OF ADMISSION: 12/02/2018 DATE OF DISCHARGE: 12/08/2018 DISCHARGE DIAGNOSES: 1. End-stage renal disease with initiation of hemodialysis. 2. Diabetic nephropathy associated with diabetes mellitus type 2. 3. Symptomatic anemia, multifactorial, status post 2 units of packed red blood cells. 4. Hypertension, labile. 5. Status post tunneled right internal jugular venous hemodialysis catheter placement, 12/03/2018. 6. Status post right upper extremity primary arteriovenous fistula, 12/03/2018. CONSULTATIONS: 1. Dr. Hunter and Dr. Roberts with Nephrology Service. 2. Dr. Mcfadden with General Surgery Service. PERTINENT LAB AND X-RAY FINDINGS: Creatinine ranged between 2.81 to 4.67, estimated GFR ranged between 10 to 18, magnesium level 1.8. LFTs showed alkaline phosphatase of 193. CBC showed a hemoglobin ranging between 6.8 to 10.9. Hepatitis B and C panel nonreactive, 12/02/2018. HOSPITAL COURSE: The patient was initially admitted after presenting with worsening renal failure in the context of chronic kidney disease. The patient was deemed an appropriate candidate, undergoing initiation of hemodialysis after placement of a right femoral Trialysis catheter. The patient was managed by the Nephrology Service for hemodialysis through the hospital course, tolerating without complication. The patient was noted with worsening anemia, likely multifactorial, receiving 2 units of packed red blood cells during the hospital stay. The patient's hemoglobin stabilized at approximately 11 by the time of discharge. The patient subsequently underwent right internal jugular tunneled hemodialysis catheter placement as well as a right upper extremity primary AV fistula placement on 12/03/2018. The patient continued to receive hemodialysis through the remainder of the hospital course and was evaluated by Case Management Services for coordination of outpatient hemodialysis on discharge. The patient was titrated on her antihypertensive regimen with addition of Norvasc 5 mg daily. The patient may need additional titration of her blood pressure regimen on an ongoing basis after discharge. I have examined the patient on discharge and discussed followup instructions. The patient verbalizes understanding and agreement, ready for discharge on 12/08/2018. DISCHARGE MEDICATIONS: 1. Calcium 600 mg 1 tab p.o. daily. 2. Ferrous sulfate 325 mg p.o. b.i.d. 3. Gabapentin 100 mg p.o. t.i.d. 4. Hydralazine 50 mg p.o. t.i.d. 5. NovoLog 70/30, 40 units subcutaneously b.i.d. 6. Amlodipine 5 mg p.o. daily. FOLLOWUP: 1. The patient to follow up with Dr. Paulino East within 7 days of discharge. 2. The patient to follow up with Dr. Carrillo Mcfadden 3-4 weeks after discharge. 3. The patient to follow up with Dr. Hunter with Nephrology Service and to call his office for appointment time and date. CONDITION ON DISCHARGE: Stable. ACTIVITY: Ad-florin. DIET: ADA and renal. CODE STATUS: Full. DISPOSITION: Home, 12/08/2018. Job ID: [id number]
== END 2018-12-08 17:45 | disposition home or self-care (01) | DRG 673 ==
LOC: ERS 09:09 → ERHOLD 12:11 → T4-A 16:50
PROVIDERS: ADMIT Internal Medicine; ATTEND Internal Medicine
PROC: 06HM33Z Insertion of Infusion Device into Right Femoral Vein, Percutaneous Approach (ICD-10-PCS; 2018-12-02)
PROC: 05HN33Z Insertion of Infusion Device into Left Internal Jugular Vein, Percutaneous Approach (ICD-10-PCS; principal; 2018-12-03)
PROC: 031B0ZF Bypass Right Radial Artery to Lower Arm Vein, Open Approach (ICD-10-PCS; 2018-12-03)
PROC: 0JH63XZ Insertion of Tunneled Vascular Access Device into Chest Subcutaneous Tissue and Fascia, Percutaneous Approach (ICD-10-PCS; 2018-12-03)
PROC: B544ZZA Ultrasonography of Left Jugular Veins, Guidance (ICD-10-PCS; 2018-12-03)
PROC: 02HV33Z Insertion of Infusion Device into Superior Vena Cava, Percutaneous Approach (ICD-10-PCS; 2018-12-03)
PROC: B548ZZA Ultrasonography of Superior Vena Cava, Guidance (ICD-10-PCS; 2018-12-03)
PROC: 30233N1 Transfusion of Nonautologous Red Blood Cells into Peripheral Vein, Percutaneous Approach (ICD-10-PCS; 2018-12-07)
PROC: 5A1D70Z Performance of Urinary Filtration, Intermittent, Less than 6 Hours Per Day (ICD-10-PCS; 2018-12-07)
DX: I12.0 Hypertensive chronic kidney disease with stage 5 chronic kidney disease or end stage renal disease (principal); N18.6 End stage renal disease; N17.9 Acute kidney failure, unspecified; E11.22 Type 2 diabetes mellitus with diabetic chronic kidney disease; E66.9 Obesity, unspecified; Z68.31 Body mass index [BMI] 31.0-31.9, adult; E88.81 Metabolic syndrome and other insulin resistance; E11.40 Type 2 diabetes mellitus with diabetic neuropathy, unspecified; D63.1 Anemia in chronic kidney disease; Z79.4 Long term (current) use of insulin; Z90.49 Acquired absence of other specified parts of digestive tract
CPT/HCPCS: 36416; 36430; 71045; 80048; 80053; 81003; 81015; 83735; 85007; 85014; 85018; 85025; 85027; 85049; 86580; 86704; 86706; 86803; 86850; 86900; 86901; 87340; 93970; C1752; C1769; G0365; J0360; J0670; J1642; J1644; J1815; J2001; J2405; J2550; J2704; J2720; J3010; J3490; P9016; P9047; Q0162; Q9967

== ENCOUNTER 2020-08-29 12:40 | Outpatient (CLI) | payer MEDICARE, OTHER | END 2020-08-29 12:41 | disposition home or self-care (01) | LOC: ULT 12:40 | PROVIDERS: ATTEND Internal Medicine | DX: R05 Cough (principal); I08.1 Rheumatic disorders of both mitral and tricuspid valves | CPT/HCPCS: 93306 ==

== ENCOUNTER 2021-05-02 16:15 | Inpatient (IN) | payer MEDICARE, MEDICAID ==
[2021-05-02 18:28] LABS: Base Excess (BEa) 6.1 mEq/L (-2.0 to +3.0); CO2 Tension 40.4 mmHg (35.0-45.0); Carboxyhemoglobin (COHb) 0.7 gm% (0.0-3.0); Hemoglobin (Hb) 12.4 g/dL (12.0-16.0); O2 Tension (PaO2), arterial 164.1 mmHg (80.0-100.0); Potassium - ABG Lab 3.24 mmol/L (3.70-5.30); pH, Arterial 7.49 (7.35-7.45)
[2021-05-02 18:30] LABS: Puncture Site LRA
[2021-05-02 19:21] VITALS: BMI 34.4
[2021-05-02] MEDS ORDERED: Dextrose 50% Abboject 50 ML SYRINGE SLOW IVP PRN (21:09)
[2021-05-02] MEDS ORDERED: Dextrose 5% in Water 1,000 ML IV PRN (21:09)
[2021-05-02] MEDS ORDERED: Ondansetron ODT 4 MG TAB PO PRN (21:09)
[2021-05-02] MEDS ORDERED: HumaLOG 300 UNITS/3 ML VIAL SC PRN (21:09)
[2021-05-02] MEDS ORDERED: Ondansetron PF 4 MG/2 ML Vial IVP PRN (21:09)
[2021-05-02] MEDS ORDERED: Electrolyte Replacement Protocol 1 EACH FS SCH (21:45)
[2021-05-02] MEDS ORDERED: Potassium Chloride 20 MEQ TAB PO SCH (21:45)
[2021-05-02] MEDS: cefTRIAXone\\ROCEPHIN 1 GM in Sodium Chloride 0.9% 100 ML IVPB SCH (22:09)
[2021-05-02] MEDS: hydrALAZINE 20 MG/ML VIAL SLOW IVP PRN (23:29)
[2021-05-02] MEDS: Azithromycin 500 MG in Sodium Chloride 0.9% 250 ML 250 ML IVPB SCH (23:30)
[2021-05-02] MEDS ORDERED: Gabapentin 100 MG CAP PO SCH (23:30)
[2021-05-03] MEDS ORDERED: Lorazepam 1 MG TAB PO PRN (00:17)
[2021-05-03] MEDS: hydrALAZINE 20 MG/ML VIAL SLOW IVP PRN (04:40)
[2021-05-03 05:26] LABS: #Eosinphils 0.2 thou/uL (0.0-0.7); #Lymphocytes 1.1 thou/uL (1.20-3.40); #Monocytes 0.6 thou/uL (0.11-0.59); #Neutrophils 4.3 thou/uL (1.40-6.50); %Basophils 0.1 % (0.0-1.0); %Lymphocytes 17.6 % (21.0-51.0); %Monocytes 9.7 % (0.0-10.0); %Neutrophils 68.6 % (42.0-75.0); Elliptocytes SLIGHT = 2-5 cells (100X) (0-1/hpf); Hemoglobin 9.8 g/dL (12.0-16.0); MDiff Complete? YES; Mean Corpuscular HGB CONC 32.9 g/dL (32.0-36.0); Mean Corpuscular Hemoglobin 32.7 pg (27.0-31.0); Mean Corpuscular Volume 99.4 fL (78.0-98.0); Mean Platelet Volume 8.7 fL (7.4-10.4); Ovalocytes MODERATE= 6-15 cells (100X) (0-1/hpf); Platelet Count 160 thou/uL (130-400); Platelet Morphology Comment Appears Adequate; RBC Distribution Width 12.6 % (11.5-14.5); Red Blood Cell (RBC) Count 3.01 mill/uL (4.20-5.40); White Blood Cell (WBC) Count 6.2 thou/uL (4.8-10.8)
[2021-05-03 05:31] LABS: Anion Gap 13 mmol/L (10-20); BUN (Urea Nitrogen) 14 mg/dL (9.8-20.1); Calc. Creatinine Clearance 21 mL/min (70-130); Calcium 8.1 mg/dL (7.8-10.44); Carbon Dioxide 29 mmol/L (22-29); Chloride 102 mmol/L (98-107); Glucose 112 mg/dL (70-105); Potassium 4.1 mmol/L (3.5-5.1); Sodium 140 mmol/L (136-145)
[2021-05-03] MEDS ORDERED: Enoxaparin Sodium 40 MG/0.4 ML SYRINGE SC SCH (09:00)
[2021-05-03 09:08] LABS: Actual Bicarbonate (HCO3a) 31.6 mEq/L (22-28); Base Excess (BEa) 6.7 mEq/L (-2.0 to +3.0); CO2 Tension 47.1 mmHg (35.0-45.0); Carboxyhemoglobin (COHb) 0.7 gm% (0.0-3.0); Hemoglobin (Hb) 10.7 g/dL (12.0-16.0); O2 Tension (PaO2), arterial 91.9 mmHg (80.0-100.0); pH, Arterial 7.45 (7.35-7.45)
[2021-05-03 09:09] LABS: ALV-art Gradient 48.865 mmHg (0-20); Puncture Site LRA
[2021-05-03 09:16] LABS: SARS-CoV-2 PCR NAA for Saliva Not Detected (NotDetected)
[2021-05-03] MEDS: Calcium Carbonate 500 MG ChewTAB PO SCH ×3 (09:40→21:20)
[2021-05-03] MEDS: Gabapentin 100 MG CAP PO SCH ×3 (09:42→21:12)
[2021-05-03] MEDS: Heparin 5,000 UNITS/ML VIAL SC SCH ×2 (09:43→21:14)
[2021-05-03] MEDS: Lisinopril 10 MG TAB PO SCH (09:44)
[2021-05-03] MEDS: hydrALAZINE 25 MG TAB PO SCH ×3 (09:44→21:14)
[2021-05-03] MEDS: NIFEdipine XL 60 MG TAB PO SCH (09:44)
[2021-05-03] MEDS: Furosemide 80 MG TAB PO SCH (09:58)
[2021-05-03] MEDS: Carvedilol 6.25 MG TAB PO SCH ×2 (09:58→21:12)
[2021-05-03 11:41] LABS: Fluid, pH - Pleural Fld Greater than 7.50 (7.60 - 7.66)
[2021-05-03 11:54] LABS: Fluid, Triglycerides 26 mg/dL (Not Available); Pleural Fluid, Amylase Less than 30 U/L (Not Available); Pleural Fluid, Glucose 118 mg/dL; Pleural Fluid, LDH 103 U/L (Not Available); Pleural Fluid, Protein 3.5 g/dL
[2021-05-03 12:10] LABS: RBC Count-Automated (BF) 119 /cu.mm; WBC/Nucleated-Auto (BF) 50 uL
[2021-05-03 12:13] LABS: BF Color Yellow; Body Fluid Source Thoracentesis Fluid; Clarity Hazy (Clear); Tube # EDTA
[2021-05-03] MEDS ORDERED: Morphine 2 MG/ML VIAL SLOW IVP SCH (12:15)
[2021-05-03 12:32] LABS: BF Segmented Neutrophils 9 %; Cell Count Non Hematic 71 %; Eosinophils 1 %; Lymphocytes 19 %
[2021-05-03 15:37] LABS: HBSAg Index 0.24 S/CO (0-0.99); Hep B Surf Ag Non-Reactive S/CO (NonReactive)
[2021-05-03] MEDS: cefTRIAXone\\ROCEPHIN 1 GM in Sodium Chloride 0.9% 100 ML IVPB SCH (21:15)
[2021-05-03] MEDS: Acetaminophen 325 MG TAB PO PRN (21:20)
[2021-05-04] MEDS: Azithromycin 500 MG in Sodium Chloride 0.9% 250 ML 250 ML IVPB SCH (01:12)
[2021-05-04] MEDS: Calcium Carbonate 500 MG ChewTAB PO SCH ×3 (09:51→21:36)
[2021-05-04] MEDS: Carvedilol 6.25 MG TAB PO SCH ×2 (09:51→22:07)
[2021-05-04] MEDS: hydrALAZINE 25 MG TAB PO SCH ×2 (09:53→16:11)
[2021-05-04] MEDS: Furosemide 80 MG TAB PO SCH (09:53)
[2021-05-04] MEDS: Gabapentin 100 MG CAP PO SCH ×3 (09:53→21:37)
[2021-05-04] MEDS: Lisinopril 10 MG TAB PO SCH (09:54)
[2021-05-04] MEDS: Heparin 5,000 UNITS/ML VIAL SC SCH ×2 (09:57→22:08)
[2021-05-04] MEDS ORDERED: guaiFENesin/Codeine 200 mg/20 mg 10 ml Cup PO PRN (10:50)
[2021-05-04] MEDS: NIFEdipine XL 60 MG TAB PO SCH (12:58)
[2021-05-04] MEDS: Guaifenesin DM 100-10/5 ML UDCUP PO PRN (13:59)
[2021-05-04] MEDS: Acetaminophen 325 MG TAB PO PRN (13:59)
[2021-05-04] MEDS ORDERED: Melatonin 3 MG TAB PO PRN (21:03)
[2021-05-04] MEDS: traMADol HCl 50 MG TAB PO PRN (21:38)
[2021-05-04] MEDS: cefTRIAXone\\ROCEPHIN 1 GM in Sodium Chloride 0.9% 100 ML IVPB SCH (21:47)
[2021-05-05] MEDS: hydrALAZINE 25 MG TAB PO SCH ×4 (00:17→20:59)
[2021-05-05] MEDS: Azithromycin 500 MG in Sodium Chloride 0.9% 250 ML 250 ML IVPB SCH (00:20)
[2021-05-05] MEDS ORDERED: Sodium Chloride 0.9% 250 ML IV SCH ×2 (03:45→04:15)
[2021-05-05 05:18] LABS: #Eosinphils 0.4 thou/uL (0.0-0.7); #Lymphocytes 1.2 thou/uL (1.20-3.40); #Monocytes 0.5 thou/uL (0.11-0.59); #Neutrophils 4.7 thou/uL (1.40-6.50); %Basophils 0.4 % (0.0-1.0); %Eosinophils 6.1 % (0.0-10.0); %Lymphocytes 17.2 % (21.0-51.0); %Monocytes 6.7 % (0.0-10.0); %Neutrophils 69.6 % (42.0-75.0); Mean Corpuscular Hemoglobin 32.4 pg (27.0-31.0); Mean Platelet Volume 8.4 fL (7.4-10.4); Platelet Count 187 thou/uL (130-400); RBC Distribution Width 13.2 % (11.5-14.5); Red Blood Cell (RBC) Count 3.07 mill/uL (4.20-5.40); White Blood Cell (WBC) Count 6.8 thou/uL (4.8-10.8)
[2021-05-05 05:29] LABS: Anion Gap 18 mmol/L (10-20); BUN (Urea Nitrogen) 17 mg/dL (9.8-20.1); Calc. Creatinine Clearance 20 mL/min (70-130); Carbon Dioxide 19 mmol/L (22-29); Chloride 104 mmol/L (98-107); Glucose 177 mg/dL (70-105); Sodium 136 mmol/L (136-145)
[2021-05-05] MEDS ORDERED: Midodrine HCl 5 MG TAB PO SCH (06:30)
[2021-05-05 07:07] LABS: Troponin I 0.016 ng/mL (< 0.028)
[2021-05-05] MEDS: Calcium Carbonate 500 MG ChewTAB PO SCH ×3 (08:50→20:58)
[2021-05-05] MEDS: Gabapentin 100 MG CAP PO SCH ×3 (08:51→20:58)
[2021-05-05] MEDS: Heparin 5,000 UNITS/ML VIAL SC SCH ×2 (08:52→20:58)
[2021-05-05] MEDS: Guaifenesin DM 100-10/5 ML UDCUP PO PRN (12:02)
[2021-05-05] MEDS: Carvedilol 6.25 MG TAB PO SCH ×2 (12:21→20:59)
[2021-05-05] MEDS: Lisinopril 10 MG TAB PO SCH (12:22)
[2021-05-05] MEDS: NIFEdipine XL 60 MG TAB PO SCH (12:22)
[2021-05-05] MEDS: Furosemide 80 MG TAB PO SCH (12:23)
[2021-05-05] MEDS ORDERED: Cyclobenzaprine 10 MG TAB PO PRN (12:37)
[2021-05-05] MEDS: Acetaminophen 325 MG TAB PO PRN (13:18)
[2021-05-05] MEDS: cefTRIAXone\\ROCEPHIN 1 GM in Sodium Chloride 0.9% 100 ML IVPB SCH (21:50)
[2021-05-06] MEDS: Azithromycin 500 MG in Sodium Chloride 0.9% 250 ML 250 ML IVPB SCH ×2 (00:17→23:38)
[2021-05-06 06:53] LABS: Hemoglobin 10.4 g/dL (12.0-16.0); Mean Corpuscular HGB CONC 31.6 g/dL (32.0-36.0); Mean Corpuscular Hemoglobin 31.9 pg (27.0-31.0); Mean Platelet Volume 8.9 fL (7.4-10.4); Platelet Count 138 thou/uL (130-400); RBC Distribution Width 13.5 % (11.5-14.5); Red Blood Cell (RBC) Count 3.26 mill/uL (4.20-5.40); White Blood Cell (WBC) Count 8.3 thou/uL (4.8-10.8)
[2021-05-06 07:05] LABS: Anion Gap 21 mmol/L (10-20); BUN (Urea Nitrogen) 23 mg/dL (9.8-20.1); Calc. Creatinine Clearance 15 mL/min (70-130); Calcium 8.3 mg/dL (7.8-10.44); Carbon Dioxide 18 mmol/L (22-29); Chloride 105 mmol/L (98-107); Glucose 122 mg/dL (70-105); Potassium 5.8 mmol/L (3.5-5.1); Sodium 138 mmol/L (136-145)
[2021-05-06] MEDS: Heparin 5,000 UNITS/ML VIAL SC SCH ×2 (09:10→21:24)
[2021-05-06] MEDS: Furosemide 80 MG TAB PO SCH (09:12)
[2021-05-06] MEDS: Calcium Carbonate 500 MG ChewTAB PO SCH ×3 (09:13→21:20)
[2021-05-06] MEDS: Carvedilol 6.25 MG TAB PO SCH ×2 (09:13→21:23)
[2021-05-06] MEDS: Gabapentin 100 MG CAP PO SCH ×3 (09:14→21:23)
[2021-05-06] MEDS: Lisinopril 10 MG TAB PO SCH (09:19)
[2021-05-06] MEDS: hydrALAZINE 25 MG TAB PO SCH ×3 (09:19→23:35)
[2021-05-06] MEDS: NIFEdipine XL 60 MG TAB PO SCH (09:20)
[2021-05-06 09:42] LABS: Band 2 % (5-11); Eosinophils 8 % (0-10); Large Platelets SLIGHT; Lymphocytes 23 % (21-51); MDiff Complete? YES; Monocytes 5 % (0-10); Neutrophil 61 % (42-75); Platelet Morphology Comment PLT clumps seen-ADEQ
[2021-05-06 10:51] LABS: Anion Gap 19 mmol/L (10-20); BUN (Urea Nitrogen) 24 mg/dL (9.8-20.1); Calc. Creatinine Clearance 15 mL/min (70-130); Calcium 8.5 mg/dL (7.8-10.44); Carbon Dioxide 21 mmol/L (22-29); Chloride 102 mmol/L (98-107); Glucose 136 mg/dL (70-105); Potassium 4.7 mmol/L (3.5-5.1); Sodium 137 mmol/L (136-145)
[2021-05-06] MEDS ORDERED: LOKELMA 10 GM PACKET PO SCH (11:00)
[2021-05-06] MEDS ORDERED: guaiFENesin 200 MG TAB PO PRN (11:29)
[2021-05-06] MEDS: HumaLOG 300 UNITS/3 ML VIAL SC PRN (17:16)
[2021-05-06] MEDS: cefTRIAXone\\ROCEPHIN 1 GM in Sodium Chloride 0.9% 100 ML IVPB SCH (21:43)
[2021-05-07] MEDS ORDERED: Sodium Chloride 0.9% 250 ML IVPB SCH (01:14)
[2021-05-07] MEDS ORDERED: Sodium Chloride 0.9% 500 ML IV SCH (01:15)
[2021-05-07] MEDS: Calcium Carbonate 500 MG ChewTAB PO SCH ×3 (09:38→20:55)
[2021-05-07] MEDS: Gabapentin 100 MG CAP PO SCH ×3 (09:38→20:57)
[2021-05-07] MEDS: Carvedilol 6.25 MG TAB PO SCH ×2 (10:12→20:57)
[2021-05-07] MEDS: Furosemide 80 MG TAB PO SCH (10:12)
[2021-05-07] MEDS: hydrALAZINE 25 MG TAB PO SCH ×3 (10:13→20:56)
[2021-05-07] MEDS: Lisinopril 10 MG TAB PO SCH (10:13)
[2021-05-07] MEDS: NIFEdipine XL 60 MG TAB PO SCH (10:13)
[2021-05-07] MEDS: Heparin 5,000 UNITS/ML VIAL SC SCH ×2 (15:15→20:56)
[2021-05-07] MEDS: traMADol HCl 50 MG TAB PO PRN (18:02)
[2021-05-07] MEDS: HumaLOG 300 UNITS/3 ML VIAL SC PRN (18:02)
[2021-05-07] MEDS: cefTRIAXone\\ROCEPHIN 1 GM in Sodium Chloride 0.9% 100 ML IVPB SCH (20:59)
[2021-05-08] MEDS: hydrOXYzine 25 MG TAB PO PRN (00:05)
[2021-05-08] MEDS: Azithromycin 500 MG in Sodium Chloride 0.9% 250 ML 250 ML IVPB SCH (00:05)
[2021-05-08 03:25] LABS: Troponin I 0.016 ng/mL (< 0.028)
[2021-05-08 04:42] LABS: Mean Corpuscular HGB CONC 33.1 g/dL (32.0-36.0); Mean Corpuscular Volume 99.7 fL (78.0-98.0); Mean Platelet Volume 8.1 fL (7.4-10.4); Platelet Count 180 thou/uL (130-400); RBC Distribution Width 13.6 % (11.5-14.5); Red Blood Cell (RBC) Count 3.01 mill/uL (4.20-5.40); White Blood Cell (WBC) Count 6.6 thou/uL (4.8-10.8)
[2021-05-08 04:43] LABS: Eosinophils 4 % (0-10); Hypochromia SLIGHT = 6-15 cells (100X) (0-5/hpf); Lymphocytes 31 % (21-51); MDiff Complete? YES; Monocytes 2 % (0-10); Neutrophil 63 % (42-75); Platelet Morphology Comment Appears Adequate
[2021-05-08 04:45] LABS: Anion Gap 18 mmol/L (10-20); BUN (Urea Nitrogen) 16 mg/dL (9.8-20.1); Calc. Creatinine Clearance 21 mL/min (70-130); Calcium 8.1 mg/dL (7.8-10.44); Carbon Dioxide 19 mmol/L (22-29); Chloride 106 mmol/L (98-107); Glucose 157 mg/dL (70-105); Sodium 138 mmol/L (136-145)
[2021-05-08] MEDS: NIFEdipine XL 60 MG TAB PO SCH (09:12)
[2021-05-08] MEDS: hydrALAZINE 25 MG TAB PO SCH ×3 (09:12→20:36)
[2021-05-08] MEDS: Lisinopril 10 MG TAB PO SCH (09:12)
[2021-05-08] MEDS: Heparin 5,000 UNITS/ML VIAL SC SCH ×2 (14:08→20:38)
[2021-05-08] MEDS: Calcium Carbonate 500 MG ChewTAB PO SCH ×3 (14:08→20:36)
[2021-05-08] MEDS: Gabapentin 100 MG CAP PO SCH ×3 (14:09→20:37)
[2021-05-08] MEDS: Furosemide 80 MG TAB PO SCH (14:09)
[2021-05-08] MEDS: HumaLOG 300 UNITS/3 ML VIAL SC PRN (17:16)
[2021-05-08] MEDS: cefTRIAXone\\ROCEPHIN 1 GM in Sodium Chloride 0.9% 100 ML IVPB SCH (20:38)
[2021-05-09] MEDS: Benzonatate 100 MG CAP PO PRN ×2 (02:05→15:34)
[2021-05-09] MEDS: Calcium Carbonate 500 MG ChewTAB PO SCH ×2 (12:33→15:30)
[2021-05-09] MEDS: Furosemide 80 MG TAB PO SCH (12:34)
[2021-05-09] MEDS: Gabapentin 100 MG CAP PO SCH ×3 (12:34→15:30)
[2021-05-09] MEDS: Lisinopril 10 MG TAB PO SCH (12:35)
[2021-05-09] MEDS: NIFEdipine XL 60 MG TAB PO SCH (12:35)
[2021-05-09] MEDS: Heparin 5,000 UNITS/ML VIAL SC SCH (12:41)
[2021-05-09] MEDS: hydrALAZINE 25 MG TAB PO SCH ×2 (13:49→13:56)
[2021-05-09] MEDS: Acetaminophen 325 MG TAB PO PRN (13:54)
[2021-05-09] MEDS: hydrOXYzine 25 MG TAB PO PRN (15:34)
[2021-05-09 17:40] VITALS: BP 180/88; TEMP 98
== END 2021-05-09 18:31 | disposition home or self-care (01) | DRG 291 ==
LOC: OBSVTOIN 18:08 → 2SW 18:08 → INTOOBSV 21:09 → OBSVTOIN 21:09 → 2NO 05-07 16:35
PROVIDERS: ADMIT Internal Medicine; ATTEND Internal Medicine
PROC: 5A1D70Z Performance of Urinary Filtration, Intermittent, Less than 6 Hours Per Day (ICD-10-PCS; principal; 2021-05-03)
PROC: 0W993ZZ Drainage of Right Pleural Cavity, Percutaneous Approach (ICD-10-PCS; 2021-05-03)
DX: I13.2 Hypertensive heart and chronic kidney disease with heart failure and with stage 5 chronic kidney disease, or end stage renal disease (principal); J96.01 Acute respiratory failure with hypoxia; N18.6 End stage renal disease; I50.33 Acute on chronic diastolic (congestive) heart failure; J90 Pleural effusion, not elsewhere classified; J98.11 Atelectasis; Z20.822 Contact with and (suspected) exposure to COVID-19; D63.1 Anemia in chronic kidney disease; E11.22 Type 2 diabetes mellitus with diabetic chronic kidney disease; E87.6 Hypokalemia; E11.649 Type 2 diabetes mellitus with hypoglycemia without coma; F41.9 Anxiety disorder, unspecified; F32.9 Major depressive disorder, single episode, unspecified; E83.119 Hemochromatosis, unspecified; I34.0 Nonrheumatic mitral (valve) insufficiency; M54.9 Dorsalgia, unspecified; G89.29 Other chronic pain; M54.2 Cervicalgia; E87.5 Hyperkalemia; I95.3 Hypotension of hemodialysis; R19.7 Diarrhea, unspecified; Z99.2 Dependence on renal dialysis; Z79.4 Long term (current) use of insulin; Z79.899 Other long term (current) drug therapy; Z90.49 Acquired absence of other specified parts of digestive tract; Z98.51 Tubal ligation status; Z98.890 Other specified postprocedural states
CPT/HCPCS: 36415; 36416; 36600; 71045; 71260; 80048; 82150; 82805; 82945; 83605; 83615; 83735; 83986; 84157; 84478; 84484; 85025; 85060; 87070; 87116; 87205; 87206; 87324; 87340; 87449; 88112; 88305; 89051; 90935; 93005; 93010; 93306; G0257; J0360; J0456; J0696; J1644; J1815; J2270; J2405; J3490; J7030; J7050; U0003; U0005

== ENCOUNTER 2022-05-01 15:36 | Inpatient (IN) | payer MEDICARE, MEDICAID ==
[2022-05-01 16:23] LABS: #Eosinphils 0.1 thou/uL (0.0-0.7); #Lymphocytes 1.2 thou/uL (1.20-3.40); #Monocytes 0.4 thou/uL (0.11-0.59); %Basophils 0.4 % (0.0-1.0); %Eosinophils 2.6 % (0.0-10.0); %Lymphocytes 25.1 % (21.0-51.0); %Monocytes 8.1 % (0.0-10.0); %Neutrophils 63.9 % (42.0-75.0); Hemoglobin 11.9 g/dL (12.0-16.0); Mean Corpuscular HGB CONC 34.2 g/dL (32.0-36.0); Mean Corpuscular Hemoglobin 33.1 pg (27.0-31.0); Mean Corpuscular Volume 96.7 fL (78.0-98.0); Mean Platelet Volume 6.5 fL (7.4-10.4); Platelet Count 272 thou/uL (130-400); RBC Distribution Width 12.7 % (11.5-14.5); Red Blood Cell (RBC) Count 3.59 mill/uL (4.20-5.40); White Blood Cell (WBC) Count 4.6 thou/uL (4.8-10.8)
[2022-05-01 16:33] LABS: PTT 32.8 sec (22.9-36.1); Prothrombin Time 13.7 sec (12.0-14.7)
[2022-05-01 16:43] LABS: ALT (SGPT) 20 U/L (8-55); AST (SGOT) 26 U/L (5-34); Albumin 3.5 g/dL (3.5-5.0); Alkaline Phosphatase 257 U/L (40-110); Anion Gap 17 mmol/L (10-20); BUN (Urea Nitrogen) 15 mg/dL (9.8-20.1); Calc. Creatinine Clearance 0 mL/min (70-130); Calcium 8.8 mg/dL (7.8-10.44); Carbon Dioxide 30 mmol/L (22-29); Chloride 98 mmol/L (98-107); Globulin 5.4 g/dL (2.4-3.5); Glucose 126 mg/dL (70-105); Potassium 4.5 mmol/L (3.5-5.1); Protein, Total 8.9 g/dL (6.0-8.3); Sodium 140 mmol/L (136-145)
[2022-05-01 17:10] LABS: CKMB 4.5 ng/mL (0-6.6)
[2022-05-01] MEDS ORDERED: Aspirin 325 MG TAB ONE (17:42)
[2022-05-01] MEDS ORDERED: Enoxaparin Sodium 60 MG/0.6 ML SYRINGE ONE (17:42)
[2022-05-01 18:35] VITALS: BMI 26.6
[2022-05-01] MEDS ORDERED: HumaLOG 300 UNITS/3 ML VIAL SC PRN ×2 (19:21)
[2022-05-01] MEDS ORDERED: Dextrose 5% in Water 1,000 ML IV PRN (19:21)
[2022-05-01] MEDS ORDERED: Dextrose 50% Abboject 50 ML SYRINGE SLOW IVP PRN (19:21)
[2022-05-01] MEDS ORDERED: Bisacodyl 5 MG TAB PO PRN (19:24)
[2022-05-01] MEDS ORDERED: Ondansetron PF 4 MG/2 ML Vial IVP PRN (19:24)
[2022-05-01] MEDS ORDERED: Senokot S 8.6-50 MG TAB PO PRN (19:24)
[2022-05-01 19:56] LABS: Troponin I 1.467 ng/mL (< 0.028)
[2022-05-01] MEDS ORDERED: hydrALAZINE 20 MG/ML VIAL SLOW IVP PRN (20:13)
[2022-05-01] MEDS ORDERED: Enoxaparin Sodium 60 MG/0.6 ML SYRINGE SC SCH (20:14)
[2022-05-01] MEDS ORDERED: Heparin 5,000 UNITS/ML VIAL SC SCH (21:00)
[2022-05-01] MEDS ORDERED: Pregabalin 50 MG CAP PO SCH (21:00)
[2022-05-01] MEDS: Carvedilol 3.125 MG TAB PO SCH (21:01)
[2022-05-01] MEDS: hydrALAZINE 25 MG TAB PO SCH (21:04)
[2022-05-01 22:37] LABS: Troponin I 3.013 ng/mL (< 0.028)
[2022-05-01] MEDS ORDERED: Pantoprazole 40 MG VIAL IVP SCH (22:59)
[2022-05-02] MEDS: traMADol HCl 50 MG TAB PO PRN ×3 (01:35→21:16)
[2022-05-02 05:25] LABS: Troponin I 4.244 ng/mL (< 0.028)
[2022-05-02 05:31] LABS: ALT (SGPT) 21 U/L (8-55); AST (SGOT) 49 U/L (5-34); Albumin 3.3 g/dL (3.5-5.0); Alkaline Phosphatase 223 U/L (40-110); Anion Gap 18 mmol/L (10-20); BUN (Urea Nitrogen) 25 mg/dL (9.8-20.1); Bilirubin, Total 0.9 mg/dL (0.2-1.2); Calc. Creatinine Clearance 13 mL/min (70-130); Calcium 8.6 mg/dL (7.8-10.44); Carbon Dioxide 26 mmol/L (22-29); Cardiac Risk 3.1 (Less than 4.5); Chloride 98 mmol/L (98-107); Cholesterol 110 mg/dl (< 200 Desired); Globulin 5.5 g/dL (2.4-3.5); Glucose 106 mg/dL (70-105); HDL Cholesterol 36 mg/dL (>60 Neg Risk); LDL Cholesterol, Calculated 64 mg/dL; Potassium 5.4 mmol/L (3.5-5.1); Protein, Total 8.8 g/dL (6.0-8.3); Sodium 137 mmol/L (136-145); Triglycerides 50 mg/dL (Less than 150)
[2022-05-02 07:43] LABS: Mean Corpuscular HGB CONC 32.7 g/dL (32.0-36.0); Mean Corpuscular Hemoglobin 33.9 pg (27.0-31.0); Mean Platelet Volume 7.7 fL (7.4-10.4); Platelet Count 222 thou/uL (130-400); RBC Distribution Width 12.8 % (11.5-14.5); Red Blood Cell (RBC) Count 3.54 mill/uL (4.20-5.40); White Blood Cell (WBC) Count 5.7 thou/uL (4.8-10.8)
[2022-05-02] MEDS: Carvedilol 3.125 MG TAB PO SCH ×2 (08:09→21:14)
[2022-05-02] MEDS: NIFEdipine XL 60 MG TAB PO SCH (08:09)
[2022-05-02] MEDS: Aspirin 325 mg Enteric Coated Tablet PO SCH (08:09)
[2022-05-02] MEDS: hydrALAZINE 25 MG TAB PO SCH ×3 (08:09→21:19)
[2022-05-02] MEDS: Pantoprazole 40 MG VIAL IVP SCH (08:10)
[2022-05-02 08:38] LABS: Hemoglobin A1c 5.9 % (4.0-6.0)
[2022-05-02 09:31] LABS: Band 2 % (5-11); Eosinophils 1 % (0-10); Lymphocytes 30 % (21-51); MDiff Complete? YES; Macrocytosis SLIGHT = 6-15 cells (100X) (0-5/hpf); Monocytes 3 % (0-10); Neutrophil 64 % (42-75); Platelet Morphology Comment Appears Adequate; Polychromasia SLIGHT = 2-3 cells (100X) (0-2/hpf)
[2022-05-02 21:12] LABS: Platelet Count 262 thou/uL (130-400)
[2022-05-02] MEDS: Heparin 25,000 units/D5W 500 ML IVPB SCH (21:43)
[2022-05-02] MEDS: Heparin 10,000 UNITS/ 10 ML VIAL SLOW IVP SCH (21:44)
[2022-05-03 05:20] LABS: #Eosinphils 0.2 thou/uL (0.0-0.7); #Lymphocytes 1.5 thou/uL (1.20-3.40); #Monocytes 0.4 thou/uL (0.11-0.59); %Basophils 0.5 % (0.0-1.0); %Eosinophils 3.3 % (0.0-10.0); %Neutrophils 69.3 % (42.0-75.0); Hemoglobin 10.4 g/dL (12.0-16.0); Mean Corpuscular Hemoglobin 30.8 pg (27.0-31.0); Mean Corpuscular Volume 99.3 fL (78.0-98.0); Mean Platelet Volume 7.1 fL (7.4-10.4); Platelet Count 211 thou/uL (130-400); RBC Distribution Width 12.7 % (11.5-14.5); Red Blood Cell (RBC) Count 3.36 mill/uL (4.20-5.40); White Blood Cell (WBC) Count 7.2 thou/uL (4.8-10.8)
[2022-05-03 05:36] LABS: Anion Gap 20 mmol/L (10-20); BUN (Urea Nitrogen) 41 mg/dL (9.8-20.1); Calc. Creatinine Clearance 10 mL/min (70-130); Calcium 8.2 mg/dL (7.8-10.44); Carbon Dioxide 23 mmol/L (22-29); Chloride 93 mmol/L (98-107); Glucose 108 mg/dL (70-105); Potassium 5.5 mmol/L (3.5-5.1); Sodium 130 mmol/L (136-145)
[2022-05-03] MEDS: traMADol HCl 50 MG TAB PO PRN ×3 (06:11→22:11)
[2022-05-03] MEDS: Aspirin 325 mg Enteric Coated Tablet PO SCH (08:42)
[2022-05-03] MEDS: NIFEdipine XL 60 MG TAB PO SCH (08:44)
[2022-05-03] MEDS: hydrALAZINE 25 MG TAB PO SCH ×3 (08:45→22:12)
[2022-05-03] MEDS: Pantoprazole 40 MG VIAL IVP SCH (08:48)
[2022-05-03] MEDS ORDERED: Carvedilol 6.25 MG TAB PO SCH (09:15)
[2022-05-03 12:16] LABS: HBSAg Index 0.55 S/CO (0-0.99); Hep B Surf Ag Non-Reactive S/CO (NonReactive)
[2022-05-03 12:24] LABS: HBSAB Concentration 219.63 mIU/mL; Hep B Surf AB Reactive (NonReactive)
[2022-05-03] MEDS ORDERED: Gabapentin 100 MG CAP PO SCH ×2 (15:00)
[2022-05-03] MEDS: Gabapentin 100 MG CAP PO SCH (15:42)
[2022-05-03] MEDS: Heparin 25,000 units/D5W 500 ML IVPB SCH (18:17)
[2022-05-03] MEDS: Atorvastatin Calcium 20 MG TAB PO SCH (22:12)
[2022-05-03] MEDS: Carvedilol 6.25 MG TAB PO SCH (22:13)
[2022-05-04 02:45] LABS: #Eosinphils 0.3 thou/uL (0.0-0.7); #Lymphocytes 1.6 thou/uL (1.20-3.40); #Monocytes 0.6 thou/uL (0.11-0.59); #Neutrophils 3.2 thou/uL (1.40-6.50); %Basophils 0.1 % (0.0-1.0); %Eosinophils 4.7 % (0.0-10.0); %Monocytes 10.2 % (0.0-10.0); %Neutrophils 57.2 % (42.0-75.0); Hemoglobin 10.7 g/dL (12.0-16.0); Mean Corpuscular HGB CONC 33.7 g/dL (32.0-36.0); Mean Corpuscular Hemoglobin 33.5 pg (27.0-31.0); Mean Corpuscular Volume 99.4 fL (78.0-98.0); Mean Platelet Volume 6.8 fL (7.4-10.4); Platelet Count 233 thou/uL (130-400); RBC Distribution Width 12.8 % (11.5-14.5); White Blood Cell (WBC) Count 5.5 thou/uL (4.8-10.8)
[2022-05-04 03:01] LABS: PTT 197.5 sec (22.9-36.1)
[2022-05-04 03:21] LABS: Anion Gap 14 mmol/L (10-20); BUN (Urea Nitrogen) 26 mg/dL (9.8-20.1); Calc. Creatinine Clearance 14 mL/min (70-130); Calcium 8.7 mg/dL (7.8-10.44); Carbon Dioxide 29 mmol/L (22-29); Chloride 93 mmol/L (98-107); Glucose 127 mg/dL (70-105); Potassium 4.2 mmol/L (3.5-5.1); Sodium 132 mmol/L (136-145)
[2022-05-04] MEDS: traMADol HCl 50 MG TAB PO PRN ×3 (05:22→21:34)
[2022-05-04] MEDS: NIFEdipine XL 60 MG TAB PO SCH (08:58)
[2022-05-04] MEDS: Aspirin 325 mg Enteric Coated Tablet PO SCH (08:58)
[2022-05-04] MEDS: Carvedilol 6.25 MG TAB PO SCH ×2 (08:58→21:35)
[2022-05-04] MEDS: hydrALAZINE 25 MG TAB PO SCH ×3 (09:00→22:26)
[2022-05-04] MEDS: Heparin 25,000 units/D5W 500 ML IVPB SCH (10:16)
[2022-05-04] MEDS: Atorvastatin Calcium 20 MG TAB PO SCH (21:34)
[2022-05-04] MEDS: Docusate 100 MG CAP PO SCH (21:35)
[2022-05-05 04:39] LABS: #Basophils 0.1 thou/uL (0.0-0.2); #Eosinphils 0.3 thou/uL (0.0-0.7); #Lymphocytes 1.6 thou/uL (1.20-3.40); #Monocytes 0.4 thou/uL (0.11-0.59); #Neutrophils 2.7 thou/uL (1.40-6.50); %Basophils 1.1 % (0.0-1.0); %Eosinophils 5.5 % (0.0-10.0); %Lymphocytes 32.1 % (21.0-51.0); %Monocytes 8.1 % (0.0-10.0); %Neutrophils 53.4 % (42.0-75.0); Hemoglobin 11.4 g/dL (12.0-16.0); Mean Corpuscular HGB CONC 34.8 g/dL (32.0-36.0); Mean Corpuscular Hemoglobin 34.5 pg (27.0-31.0); Mean Corpuscular Volume 99.1 fL (78.0-98.0); Mean Platelet Volume 7.4 fL (7.4-10.4); Platelet Count 189 thou/uL (130-400); RBC Distribution Width 12.7 % (11.5-14.5); White Blood Cell (WBC) Count 5.1 thou/uL (4.8-10.8)
[2022-05-05 05:04] LABS: Anion Gap 21 mmol/L (10-20); BUN (Urea Nitrogen) 46 mg/dL (9.8-20.1); Calc. Creatinine Clearance 10 mL/min (70-130); Carbon Dioxide 22 mmol/L (22-29); Chloride 92 mmol/L (98-107); Glucose 115 mg/dL (70-105); Potassium 4.9 mmol/L (3.5-5.1); Sodium 130 mmol/L (136-145)
[2022-05-05] MEDS: Heparin 10,000 UNITS/ 10 ML VIAL SLOW IVP SCH (05:40)
[2022-05-05] MEDS ORDERED: Communication Order-Pharmacy FS SCH (08:30)
[2022-05-05] MEDS: Aspirin 325 mg Enteric Coated Tablet PO SCH (09:28)
[2022-05-05] MEDS: Carvedilol 6.25 MG TAB PO SCH ×2 (09:28→22:14)
[2022-05-05] MEDS: hydrALAZINE 25 MG TAB PO SCH ×3 (09:29→22:14)
[2022-05-05] MEDS: NIFEdipine XL 30 MG TAB PO SCH (09:29)
[2022-05-05] MEDS: Docusate 100 MG CAP PO SCH (09:29)
[2022-05-05] MEDS: Folic Acid 1 MG TAB PO SCH (09:29)
[2022-05-05 11:21] LABS: PTT 158.1 sec (22.9-36.1)
[2022-05-05] MEDS: Heparin 25,000 units/D5W 500 ML IVPB SCH (14:39)
[2022-05-05] MEDS: Acetaminophen 325 MG TAB PO PRN (22:13)
[2022-05-05] MEDS: Atorvastatin Calcium 20 MG TAB PO SCH (22:14)
[2022-05-06 05:49] LABS: #Eosinphils 0.2 thou/uL (0.0-0.7); #Lymphocytes 1.2 thou/uL (1.20-3.40); #Monocytes 0.3 thou/uL (0.11-0.59); #Neutrophils 4.1 thou/uL (1.40-6.50); %Basophils 0.3 % (0.0-1.0); %Eosinophils 4.1 % (0.0-10.0); %Lymphocytes 20.6 % (21.0-51.0); %Monocytes 5.8 % (0.0-10.0); %Neutrophils 69.2 % (42.0-75.0); Hemoglobin 9.9 g/dL (12.0-16.0); Mean Corpuscular HGB CONC 33.4 g/dL (32.0-36.0); Mean Corpuscular Hemoglobin 32.7 pg (27.0-31.0); Platelet Count 222 thou/uL (130-400); RBC Distribution Width 12.8 % (11.5-14.5); Red Blood Cell (RBC) Count 3.03 mill/uL (4.20-5.40); White Blood Cell (WBC) Count 5.9 thou/uL (4.8-10.8)
[2022-05-06] MEDS: Aspirin 325 mg Enteric Coated Tablet PO SCH (05:54)
[2022-05-06] MEDS: hydrALAZINE 25 MG TAB PO SCH ×3 (05:54→22:05)
[2022-05-06] MEDS: Folic Acid 1 MG TAB PO SCH (05:54)
[2022-05-06] MEDS: Carvedilol 6.25 MG TAB PO SCH ×2 (05:54→22:05)
[2022-05-06] MEDS: NIFEdipine XL 30 MG TAB PO SCH (05:55)
[2022-05-06 06:06] LABS: Anion Gap 22 mmol/L (10-20); BUN (Urea Nitrogen) 56 mg/dL (9.8-20.1); Calc. Creatinine Clearance 8 mL/min (70-130); Carbon Dioxide 22 mmol/L (22-29); Chloride 91 mmol/L (98-107); Glucose 130 mg/dL (70-105); Potassium 5.1 mmol/L (3.5-5.1); Sodium 130 mmol/L (136-145)
[2022-05-06 06:14] LABS: PTT 137.9 sec (22.9-36.1)
[2022-05-06] MEDS: traMADol HCl 50 MG TAB PO PRN ×3 (09:15→23:30)
[2022-05-06] MEDS: Gabapentin 100 MG CAP PO SCH (18:22)
[2022-05-06] MEDS ORDERED: Morphine 4 MG/ML VIAL SLOW IVP SCH (21:30)
[2022-05-06] MEDS: Heparin 10,000 UNITS/ 10 ML VIAL SLOW IVP SCH (22:06)
[2022-05-06] MEDS: Atorvastatin Calcium 20 MG TAB PO SCH (22:06)
[2022-05-07] MEDS: Morphine 4 MG/ML VIAL SLOW IVP PRN ×5 (01:37→21:01)
[2022-05-07 02:28] LABS: #Eosinphils 0.2 thou/uL (0.0-0.7); #Lymphocytes 1.3 thou/uL (1.20-3.40); #Monocytes 0.5 thou/uL (0.11-0.59); %Basophils 0.1 % (0.0-1.0); %Eosinophils 2.6 % (0.0-10.0); %Lymphocytes 22.2 % (21.0-51.0); %Monocytes 7.8 % (0.0-10.0); %Neutrophils 67.3 % (42.0-75.0); Hemoglobin 9.9 g/dL (12.0-16.0); Mean Corpuscular HGB CONC 34.2 g/dL (32.0-36.0); Mean Corpuscular Hemoglobin 33.1 pg (27.0-31.0); Mean Corpuscular Volume 96.6 fL (78.0-98.0); Mean Platelet Volume 6.8 fL (7.4-10.4); Platelet Count 197 thou/uL (130-400); RBC Distribution Width 12.6 % (11.5-14.5)
[2022-05-07 03:21] LABS: Anion Gap 19 mmol/L (10-20); BUN (Urea Nitrogen) 25 mg/dL (9.8-20.1); Calc. Creatinine Clearance 14 mL/min (70-130); Calcium 8.6 mg/dL (7.8-10.44); Carbon Dioxide 22 mmol/L (22-29); Chloride 96 mmol/L (98-107); Glucose 100 mg/dL (70-105); Potassium 3.9 mmol/L (3.5-5.1); Sodium 133 mmol/L (136-145)
[2022-05-07] MEDS: Heparin 25,000 units/D5W 500 ML IVPB SCH (04:21)
[2022-05-07] MEDS: Aspirin 325 mg Enteric Coated Tablet PO SCH (09:26)
[2022-05-07] MEDS: Carvedilol 6.25 MG TAB PO SCH ×2 (09:26→21:00)
[2022-05-07] MEDS: NIFEdipine XL 30 MG TAB PO SCH (09:27)
[2022-05-07] MEDS: Folic Acid 1 MG TAB PO SCH (09:27)
[2022-05-07] MEDS: hydrALAZINE 25 MG TAB PO SCH ×3 (09:27→21:01)
[2022-05-07] MEDS: Apixaban 5 MG TAB PO SCH (20:59)
[2022-05-07] MEDS: Atorvastatin Calcium 20 MG TAB PO SCH (21:00)
[2022-05-08] MEDS: Morphine 4 MG/ML VIAL SLOW IVP PRN ×2 (02:29→14:06)
[2022-05-08 04:56] LABS: #Eosinphils 0.3 thou/uL (0.0-0.7); #Lymphocytes 1.3 thou/uL (1.20-3.40); #Monocytes 0.4 thou/uL (0.11-0.59); #Neutrophils 3.8 thou/uL (1.40-6.50); %Basophils 0.1 % (0.0-1.0); %Eosinophils 4.7 % (0.0-10.0); %Lymphocytes 23.1 % (21.0-51.0); %Monocytes 7.4 % (0.0-10.0); %Neutrophils 64.8 % (42.0-75.0); Hemoglobin 9.2 g/dL (12.0-16.0); Mean Corpuscular HGB CONC 34.1 g/dL (32.0-36.0); Mean Corpuscular Hemoglobin 33.5 pg (27.0-31.0); Mean Corpuscular Volume 98.1 fL (78.0-98.0); Mean Platelet Volume 6.6 fL (7.4-10.4); Platelet Count 186 thou/uL (130-400); RBC Distribution Width 12.7 % (11.5-14.5); Red Blood Cell (RBC) Count 2.73 mill/uL (4.20-5.40); White Blood Cell (WBC) Count 5.8 thou/uL (4.8-10.8)
[2022-05-08 05:10] LABS: Anion Gap 16 mmol/L (10-20); BUN (Urea Nitrogen) 41 mg/dL (9.8-20.1); Calc. Creatinine Clearance 9 mL/min (70-130); Calcium 8.7 mg/dL (7.8-10.44); Carbon Dioxide 30 mmol/L (22-29); Chloride 92 mmol/L (98-107); Glucose 95 mg/dL (70-105); Potassium 4.7 mmol/L (3.5-5.1); Sodium 133 mmol/L (136-145)
[2022-05-08] MEDS: Carvedilol 6.25 MG TAB PO SCH (11:56)
[2022-05-08] MEDS: Apixaban 5 MG TAB PO SCH (11:56)
[2022-05-08] MEDS: hydrALAZINE 25 MG TAB PO SCH ×2 (11:56→17:07)
[2022-05-08 16:08] VITALS: BP 167/72; TEMP 98.4
[2022-05-08] MEDS: Folic Acid 1 MG TAB PO SCH (17:07)
[2022-05-08] MEDS: Aspirin 325 mg Enteric Coated Tablet PO SCH ×2 (17:07→17:10)
[2022-05-08] MEDS: NIFEdipine XL 30 MG TAB PO SCH (17:07)
[2022-05-08] MEDS: Gabapentin 100 MG CAP PO SCH (17:07)
[2022-05-08] MEDS: traMADol HCl 50 MG TAB PO PRN (17:33)
[2022-05-08] MEDS: Acetaminophen 325 MG TAB PO PRN (17:36)
== END 2022-05-08 18:15 | disposition home or self-care (01) | DRG 280 ==
LOC: ERS 15:36 → 2NO 17:15 → OBSVTOIN 05-02 09:51 → 2NO 05-05 11:30
PROVIDERS: ADMIT Internal Medicine; ATTEND Internal Medicine
PROC: 5A1D70Z Performance of Urinary Filtration, Intermittent, Less than 6 Hours Per Day (ICD-10-PCS; principal; 2022-05-03)
PROC: 02HV33Z Insertion of Infusion Device into Superior Vena Cava, Percutaneous Approach (ICD-10-PCS; 2022-05-03)
DX: I21.4 Non-ST elevation (NSTEMI) myocardial infarction (principal); N18.6 End stage renal disease; I50.32 Chronic diastolic (congestive) heart failure; I13.2 Hypertensive heart and chronic kidney disease with heart failure and with stage 5 chronic kidney disease, or end stage renal disease; I47.1 Supraventricular tachycardia; Z20.822 Contact with and (suspected) exposure to COVID-19; E11.22 Type 2 diabetes mellitus with diabetic chronic kidney disease; E11.51 Type 2 diabetes mellitus with diabetic peripheral angiopathy without gangrene; E87.5 Hyperkalemia; E88.09 Other disorders of plasma-protein metabolism, not elsewhere classified; I48.91 Unspecified atrial fibrillation; I08.1 Rheumatic disorders of both mitral and tricuspid valves; D63.1 Anemia in chronic kidney disease; I95.9 Hypotension, unspecified; Z99.2 Dependence on renal dialysis; Z79.899 Other long term (current) drug therapy; Z79.4 Long term (current) use of insulin; Z86.718 Personal history of other venous thrombosis and embolism; Z90.49 Acquired absence of other specified parts of digestive tract; Z98.51 Tubal ligation status; Z98.42 Cataract extraction status, left eye; Z98.41 Cataract extraction status, right eye; Z83.3 Family history of diabetes mellitus; Z82.49 Family history of ischemic heart disease and other diseases of the circulatory system
CPT/HCPCS: 36415; 36416; 71045; 80048; 80053; 80061; 82553; 83036; 83880; 84443; 84484; 85025; 85610; 85730; 86706; 87340; 90935; 93005; 93010; 93306; 93880; 96372; 96374; 96376; C9113; G0257; G0378; J1642; J1644; J1650; J2270; J2405; U0003; U0005